=== PATIENT | male | born 1975 | race Caucasian/White ===

== ENCOUNTER 2016-10-07 08:36 | Observation (INO) | payer OTHER ==
[~2016-10-07] VITALS: Ht 177.8 cm; Wt 83.5 kg
[~2016-10-07 08:36] MED LIST: FIORTAB4 PO; Z.0.NO CURRENT MEDS
[2016-10-07 08:37] VITALS: BP 136/80; PULSE 72; RESP 18; TEMP 98.3; O2SAT 100
[2016-10-07 08:58] VITALS: BP 135/90; PULSE 72; RESP 18; O2SAT 100
--- NOTE | 2016-10-07 09:29 | PD ---
HPI Chief Complaint: Headache Time Seen by Provider: 09:01 Travel History International Travel<30 days: No Contact w/Intl Traveler<30days: No Traveled to known affect area: No History of Present Illness HPI This is a 40-year-old male with a history of a GAUGE MAKER APPRENTICE shunt, who presents today with complaints of headache. Patient also states he has tingling in his leg. He states that when he has malfunction so the son states that the symptoms he usually gets. Patient reports headache. He states it's not the worst headache of his life. He denies any photophobia. He does have nausea with no vomiting. He denies any fevers, chills. He states he is a little unsteady on his feet but no true ataxia. PFSH Past Medical History Arthritis: No Asthma: No Autoimmune Disease: No Blood Disorders: No Anxiety: No Depression: No Cancer: No Cardiovascular Problems: No Chemotherapy: No COPD: No Cerebrovascular Accident: No Diabetes: No Endocrine: No Gastrointestinal Disorders: Yes GERD: No Glaucoma: No Genitourinary: No Headaches: Yes Hepatitis: No Hiatal Hernia: No Musculoskeletal: Yes Neurologic: Yes (HYDROCEPHALISIS) Psychiatric: No Reproductive: No Respiratory: No Radiation Therapy: No Seizures: No Ulcer: Yes Past Surgical History Abdominal Surgery: No AICD: No Body Medical Devices: R-PARITAL LOBE GAUGE MAKER APPRENTICE SHUNT Cardiac Surgery: No Ear Surgery: No Endocrine Surgery: No Eye Surgery: No Genitourinary Surgery: No Gynecologic Surgery: No Neurologic Surgery: Yes (21 SHUNT REVISIONS) Oral Surgery: No Pacemaker: No Thoracic Surgery: No Other Surgery: Yes (GAUGE MAKER APPRENTICE SHUNTX 20) Social History Alcohol Use: Yes (1 BEER DAILY) Tobacco Use: Yes (1 CAN TOBACCO/3 DAYS) Substance Use: No Allergies-Medications (Allergen,Severity, Reaction): Coded Allergies: Morphine (Verified Allergy, Mild, Itching, 04/16/07) Adhesives (Verified Adverse Reaction, Mild, RED WHELPS, 04/16/07) Uncoded Allergies: MORPHINE ITCHING (Allergy, Mild, 12/20/06) Reported Meds & Prescriptions Reported Meds & Active Scripts Active No Active Prescriptions or Reported Medications Review of Systems Except as stated in HPI: all other systems reviewed are Neg General / Constitutional: No: Fever, Chills HENT: Positive: Headaches, No: Lightheadedness, Neck Pain Cardiovascular: No: Chest Pain or Discomfort, Palpitations Respiratory: No: Cough, Shortness of Breath Gastrointestinal: Positive: Nausea, No: Vomiting, Abdominal Pain Genitourinary: No: Incontinence Musculoskeletal: No: Weakness, Pain Neurologic: Positive: Headache (tingling down right leg), Sensory Disturbance, Other (unsteady on his feet.), No: Weakness, Dizziness Physical Exam Narrative GENERAL: Well-developed well-nourished male in no acute respiratory distress. SKIN: Focused skin assessment warm/dry. HEAD: Atraumatic. Normocephalic. EYES: No scleral icterus. No injection or drainage. ENT: No nasal bleeding or discharge. Mucous membranes pink and moist. NECK: Trachea midline. Supple. CARDIOVASCULAR: Regular rate and rhythm. No murmur appreciated. RESPIRATORY: No accessory muscle use. Clear to auscultation. Breath sounds equal bilaterally. GASTROINTESTINAL: Abdomen soft, non-tender, nondistended. Hepatic and splenic margins not palpable. MUSCULOSKELETAL: No obvious deformities. No clubbing. No cyanosis. No edema. NEUROLOGICAL: Awake and alert. No obvious cranial nerve deficits. Motor grossly within normal limits. Normal speech. Data Data Last Documented VS Vital Signs Date Time Temp Pulse Resp B/P Pulse Ox O2 Delivery O2 Flow Rate FiO2 10/07/16 14:00 60 18 137/72 99 Room Air 10/07/16 08:[address] Brain W/O Iv Contrast(Rout) (10/07/16 09:06) Shunt Series (10/07/16 ) Ondansetron Inj (Zofran Inj) (10/07/16 09:53) Ondansetron Inj (Zofran Inj) (10/07/16 10:00) Hydromorphone Pf Inj (Dilaudid Pf Inj) (10/07/16 10:15) Shuntogram (10/07/16 ) Ondansetron Inj (Zofran Inj) (10/07/16 14:00) Hydromorphone Pf Inj (Dilaudid Pf Inj) (10/07/16 14:00) Vital Signs (Adult) Q15MX2,Q30MX2 (10/07/16 15:12) Wound Care (10/07/16 15:12) ^ Dressings (10/07/16 15:12) Notify Dr: Other (10/07/16 15:12) Iohexol 300 Inj (Omnipaque 300 Inj) (10/07/16 15:36) Complete Blood Count With Diff (10/07/16 16:53) Basic Metabolic Panel (Bmp) (10/07/16 16:53) Sodium Chlor 0.9% 1000 Ml Inj (Ns 1000 M (10/07/16 17:00) Admit Order (Ed Use Only) (10/07/16 18:41) Labs Laboratory Tests Test 10/07/16 17:04 White Blood Count 6.1 TH/MM3 Red Blood Count 4.82 MIL/MM3 Hemoglobin 14.6 GM/DL Hematocrit 41.4 % Mean Corpuscular Volume 85.9 FL Mean Corpuscular Hemoglobin 30.2 PG Mean Corpuscular Hemoglobin 35.2 % Concent Red Cell Distribution Width 14.5 % Platelet Count 147 TH/MM3 Mean Platelet Volume 9.7 FL Neutrophils (%) (Auto) 54.9 % Lymphocytes (%) (Auto) 31.9 % Monocytes (%) (Auto) 8.3 % Eosinophils (%) (Auto) 4.1 % Basophils (%) (Auto) 0.8 % Neutrophils # (Auto) 3.4 TH/MM3 Lymphocytes # (Auto) 2.0 TH/MM3 Monocytes # (Auto) 0.5 TH/MM3 Eosinophils # (Auto) 0.3 TH/MM3 Basophils # (Auto) 0.0 TH/MM3 CBC Comment DIFF FINAL Differential Comment Sodium Level 139 MEQ/L Potassium Level 3.7 MEQ/L Chloride Level 105 MEQ/L Carbon Dioxide Level 27.5 MEQ/L Anion Gap 7 MEQ/L Blood Urea Nitrogen 17 MG/DL Creatinine 0.87 MG/DL Estimat Glomerular Filtration 96 ML/MIN Rate Random Glucose 86 MG/DL Calcium Level 8.8 MG/DL [facility] Medical Decision Making Medical Screen Exam Complete: Yes Emergency Medical Condition: Yes Differential Diagnosis Cephalgia versus shunt malfunction versus TIA Narrative Course 40-year-old male with history of GAUGE MAKER APPRENTICE shunt, presents today with plates of headache and right leg pain. The patient states whenever he has problems with his GAUGE MAKER APPRENTICE shunt, he experiences these symptoms. His GAUGE MAKER APPRENTICE shunt was revised 13 years ago. He reports the headache as bifrontal. He denies any vomiting but does state he is nauseous. He does report increased thirst. The patient has no reported fevers, chills. He has no weakness of his right lower extremity just pain. Shunt series, CT brain, and shuntogram show no obvious problems with his GAUGE MAKER APPRENTICE shunt. The patient has received 2 doses of IV pain medicine and nausea medications. He is still having recurrent symptoms. He's been given a liter of IV fluids and his labs reveal no evidence of acute process. The case was discussed with Dr. Rosales who recommended we made the patient to the hospital under observation. He recommended a neurology consults and he will also see him in consultation. Both consultations has been placed. Case was discussed with Dr. Vazquez who agrees. Diagnosis Primary Impression: Intractable headache Additional Impressions: intractable nausea history of GAUGE MAKER APPRENTICE shunt Admitting Information Admitting Physician Requests: Observation Scripts No Active Prescriptions or Reported Meds Omar Moon MD Oct 07, 2016 09:29
--- NOTE | 2016-10-07 09:43 | RADRPT ---
EXAM DATE/TIME: 10/07/2016 09:25 [facility] COMPARISON: No previous studies available for comparison. INDICATIONS : Headache and leg numbness. MEDICAL HISTORY : Hydrocephalus. SURGICAL HISTORY : SENIOR INTEGRATION DEVELOPER shunt. ENCOUNTER: Initial ACUITY: 1 week PAIN SCORE: 4/10 LOCATION: Head FINDINGS: Radiograph of the skull, neck, chest and abdomen performed to evaluate shunt patency. The shunt cath eter is seen entering the left frontal region with its tip in the midline. The catheter is continuous in its course terminating in the midpelvis. No catheter disruption is iden tified. The visualized heart, lungs and abdominal structures are intact. CONCLUSION: Intact shunt. Rony Lovelace MD on October 07, 2016 at 9:40 Board Certified Radiologist. This report was verified electronically.
[2016-10-07] MEDS ORDERED: ONDANSETRON HCL 4 MG/2 ML VIAL ONE (09:53)
[2016-10-07] MEDS ORDERED: ONDANSETRON HCL 4 MG/2 ML VIAL IVP ONE ×2 (10:00→14:00)
[2016-10-07] MEDS ORDERED: HYDROmorphone HCL PF 1 MG/ML VIAL IVS ONE ×2 (10:15→14:00)
--- NOTE | 2016-10-07 10:49 | RADRPT ---
EXAM DATE/TIME: 10/07/2016 09:54 [facility] COMPARISON: No previous studies available for comparison. INDICATIONS : Dizziness and headache. RADIATION DOSE: 50.40 CTDIvol (mGy) MEDICAL HISTORY : Hydrocephalus. SURGICAL HISTORY : WARDSPERSON shunt ENCOUNTER: Initial ACUITY: 1 day PAIN SCALE: 7/10 LOCATION: Cranial TECHNIQUE: Multiple contiguous axial images were obtained of the head. Using automated exposure control and adj ustment of the mA and/or kV according to patient size, radiation dose was kept as low as reasonably a chievable to obtain optimal diagnostic quality images. DICOM format image data is available electro nically for review and comparison. FINDINGS: A left frontal ventriculostomy shunt is identified with its tip in the expected region of a cavum sep gary pellucidum just to the right of midline. The ventricles are slightly prominent bilaterally. There is no acute infarct, acute hemorrhage, midline shift or extra-axial fluid collections. The bone windows are unremarkable. CONCLUSION: 1. Ventriculostomy shunt tip appears to be to the right of midline within cavum septum pellucidum. 2. Mild prominence of the ventricles bilaterally. 3. No acute infarct, acute hemorrhage, midline shift or extra-axial fluid collections. Rony Lovelace MD on October 07, 2016 at 10:39 Board Certified Radiologist. This report was verified electronically.
[2016-10-07 14:00] VITALS: BP 137/72; PULSE 60; RESP 18; O2SAT 99
--- NOTE | 2016-10-07 15:14 | PD.RAD ---
Post Procedure Progress Note Pre Procedure Diagnosis: (1) STOCK SAW OPERATOR (ventriculoperitoneal) shunt status Post Procedure Diagnosis: (1) STOCK SAW OPERATOR (ventriculoperitoneal) shunt status Procedure Date: Oct 07, 2016 Supervising Radiologist: Garett Anand JR Proceduralist/Assist: Victor Hugo Prado, RT(R), Arnold Nair RT(R) Anesthesia: Other Plan of Activity Patient to Unit: [facility]OPU Patient Condition: Good Additional Comments: STOCK SAW OPERATOR shunt patent. No leakage. Patent to the abdomen. See PACS Report for procedural detail/treatment Jr. Cheng,Garett Richmond MD Oct 07, 2016 15:14
[2016-10-07] MEDS ORDERED: IOHEXOL 300 MG/ML 50 ML BTL (for RAD DIAG) OTHER ONE (15:36)
--- NOTE | 2016-10-07 16:43 | RADRPT ---
EXAM DATE/TIME: 10/07/2016 14:38 [facility] COMPARISON: No previous studies available for comparison. INDICATIONS : Patient presents with non functioning shunt in need of shuntogram to evaluate function. MEDICAL HISTORY : Headaches Hydrocephalus SURGICAL HISTORY : Right partial lobe BLADE WORKER shunt (21 shunt revisions) ENCOUNTER: Initial ACUITY: 4-6 days PAIN SCORE: 3/10 LOCATION: N/A FLUORO TIME: 1.7 minutes IMAGE SERIES: 0 CONTRAST: 10 cc Omnipaque (iohexol) 300 PROCEDURE : 1. Fluoroscopically guided shuntogram. The risks, benefits and alternatives to the procedure were explained and verbal and written consent w as obtained. The site was prepped in sterile fashion. Full sterile technique was used, including ca p, mask, sterile gloves and gown and a large sterile sheet. Hand hygiene and 2% chlorhexidine and/or betadine/alcohol prep was utilized per protocol for cutaneous antisepsis. The skin and subcutaneous tissues were infiltrated with local anesthetic solution. With fluoroscopic guidance the previously placed shunt was injected with a 23 gauge butterfly needle and positive contrast was injected. The shunt enters via left parietal approach and terminates in the midline. The shunt courses down the left neck and chest and is coiled within the left midabdomen. Injection of contrast quickly spilled into the intraventricular portion as well as quickly opacifies the descending portion of the shunt sp illing easily into the peritoneal cavity. No extravasation is seen to suggest a leak. CONCLUSION: Patent BLADE WORKER shunt. No signs of leak. Garett Anand Jr., MD on October 07, 2016 at 16:40 Board Certified Radiologist. This report was verified electronically.
[2016-10-07] MEDS ORDERED: SODIUM CHLOR 0.9% 1000 ML INJ 1,000 ML IV ONE (17:00)
[2016-10-07 17:18] LABS: AUTOMATED NEUTROPHIL # 3.4 TH/MM3 (1.8-7.7); BASOPHIL % 0.8 % (0.0-2.0); EOSINOPHIL # 0.3 TH/MM3 (0-0.4); EOSINOPHIL % 4.1 % (0.0-4.0); HEMATOCRIT 41.4 % (39.0-51.0); HEMO FLAGS DIFF FINAL; LYMPH % 31.9 % (9.0-44.0); MEAN CELL VOLUME 85.9 FL (80.0-100.0); MEAN CORPUSCULAR HEMOGLOBIN 30.2 PG (27.0-34.0); MEAN CORPUSCULAR HGB CONC 35.2 % (32.0-36.0); MONO % 8.3 % (0.0-8.0); NEUT % 54.9 % (16.0-70.0); PLATELET COUNT 147 TH/MM3 (150-450); RED BLOOD COUNT 4.82 MIL/MM3 (4.50-5.90); RED CELL DISTRIBUTION WIDTH 14.5 % (11.6-17.2); WHITE BLOOD COUNT 6.1 TH/MM3 (4.0-11.0)
[2016-10-07 17:25] VITALS: BP 128/78; PULSE 89; RESP 18; O2SAT 99
[2016-10-07 17:52] LABS: BICARBONATE 27.5 MEQ/L (21.0-32.0); POTASSIUM 3.7 MEQ/L (3.5-5.1)
[2016-10-07 19:12] VITALS: BP 133/62; PULSE 59; RESP 16; O2SAT 93
[2016-10-07] MEDS ORDERED: ACETAMINOPHEN 325 MG TAB PO PRN (19:15)
[2016-10-07] MEDS ORDERED: SODIUM CHLORIDE 0.9% FLUSH 10 ML FLUSH IV FLUSH PRN (19:15)
[2016-10-07 21:06] VITALS: BP 112/71; PULSE 66; RESP 18; TEMP 98.4; O2SAT 97
[2016-10-07] MEDS: ONDANSETRON HCL 4 MG/2 ML VIAL IV PUSH PRN (23:16)
[2016-10-07] MEDS: SODIUM CHLORIDE 0.9% FLUSH 10 ML FLUSH IV FLUSH SCH (23:17)
[2016-10-08] VITALS (7 sets, daily range): BP systolic 94–136; BP diastolic 51–70; PULSE 60–74; RESP 16–20; TEMP 96.2–98.9; O2SAT 66–98
[2016-10-08] MEDS ORDERED: KETOROLAC TROMETHAMINE 30 MG/ML (IVP) VIAL IV PUSH ONE (03:45)
--- NOTE | 2016-10-08 04:45 | HHI.HP ---
HPI Service [facility] Primary Care Physician Non-Staff Admission Diagnosis intractable headache, hx of vp publisher development shunt, Diagnoses: (1) Intractable headache Chief Complaint: headache Travel History International Travel<30 Days: No Contact w/Intl Traveler <30 Da: No Traveled to Known Affected Are: No History of Present Illness Written by Diann Frederick, acting as scribe for Dr. Lay on 10/08/16 at 04:35. The patient is seen in the CDU. 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 Denies photosensitivity. Migraines improve with advil migraine OTC medication Denies abdominal pain, fever, blurry vision, unilateral weakness, vomiting, diarrhea, black stool, red stool, or difficulty urinating - Review of Systems Except as stated in HPI: all other systems reviewed are Neg Past Family Social History Past Medical History Hydrocephalus Bleeding ulcers Denies hypertension, CAD, atrial fibrillation, breathng problems, liver problems , kidney problems, DVT, PE, CVA, seizures, thyroid dysfunction, or cancers . Past Surgical History CHILD CARE NURSE shunt insertion GI bleed cauterization during endoscopy Appendectomy . Reported Medications Protonix Advil migraine . Allergies: Coded Allergies: Morphine (Verified Allergy, Mild, Itching, 04/16/07) Dilaudid (Verified Adverse Reaction, Intermediate, Chest Pain, 10/09/16) Adhesives (Verified Adverse Reaction, Mild, RED WHELPS, 04/16/07) Uncoded Allergies: MORPHINE ITCHING (Allergy, Mild, 12/20/06) Active Ordered Medications Current Medications Ondansetron HCl (Zofran Inj) 4 mg STK-MED ONCE .ROUTE ; Start 10/07/16 at 09:53 ; Stop 10/07/16 at 09:54; Status DC Ondansetron HCl (Zofran Inj) 4 mg ONCE ONCE IVP Last administered on 10:06; Start 10/07/16 at 10:00; Stop 10/07/16 at 10:01; Status DC Hydromorphone HCl (Dilaudid Pf Inj) 0.5 mg ONCE ONCE IVS Last administered on 10/07/16 10:18; Start 10/07/16 at 10:15; Stop 10/07/16 at 10:16; Status DC Ondansetron HCl (Zofran Inj) 4 mg ONCE ONCE IVP Last administered on 13:59; Start 10/07/16 at 14:00; Stop 10/07/16 at 14:01; Status DC Hydromorphone HCl (Dilaudid Pf Inj) 1 mg ONCE ONCE IVS Last administered on 14:00; Start 10/07/16 at 14:00; Stop 10/07/16 at 14:01; Status DC Iohexol 10 ml 10 ml STK-MED ONCE OTHER Last administered on 10/07/16 15:15; Start 10/07/16 at 15:36; Stop 10/07/16 at 15:37; Status DC Sodium Chloride (NS 1000 ml Inj) 1,000 ml @ 999 mls/hr BOLUS ONCE IV Last administered on 10/07/16 17:12; Start 10/07/16 at 17:00; Stop 10/07/16 at 18:00 ; Status DC Sodium Chloride (NS Flush) 2 ml UNSCH PRN IV FLUSH FLUSH AFTER USING IV ACCESS ; Start 10/07/16 at 19:15 Sodium Chloride (NS Flush) 2 ml BID IV FLUSH Last administered on 10/07/16 23: 17; Start 10/07/16 at 21:00 Acetaminophen (Tylenol) 650 mg Q6H PRN PO PAIN SCALE 1 TO 2 Last administered on 10/07/16 23:16; Start 10/07/16 at 19:15 Ondansetron HCl (Zofran Inj) 4 mg Q6H PRN IV PUSH NAUSEA OR VOMITING Last administered on 10/07/16 23:16; Start 10/07/16 at 22:15 Ketorolac Tromethamine (Toradol Inj) 15 mg ONCE ONCE IV PUSH Last administered on 10/08/16 04:18; Start 10/08/16 at 03:45; Stop 10/08/16 at 03:46 ; Status DC . Family History Mother had a CABG x 3 . Social History Tobacco: dips a can every 2 days Alcohol: a beer every couple of days . Physical Exam Vital Signs Vital Signs Date Time Temp Pulse Resp B/P Pulse Ox O2 Delivery O2 Flow Rate FiO2 10/08/16 02:57 98.8 67 20 118/64 98 10/08/16 00:10 98.9 60 20 94/51 98 10/07/16 21:06 98.4 66 18 112/71 97 10/07/16 19:12 59 16 133/62 93 Room Air 10/07/16 17:25 89 18 128/78 99 Room Air 10/07/16 14:00 60 18 137/72 99 Room Air 10/07/16 08:58 72 18 135/90 100 Room Air 10/07/16 08:54 64 18 99 Room Air 10/07/16 08:37 98.3 72 18 136/80 100 Room Air Physical Exam GENERAL: This is a well-nourished, well-developed patient, in no apparent distress. SKIN: No rashes, ecchymoses or lesions. Cool and dry. HEAD: Atraumatic. Normocephalic. EYES: No scleral icterus. No injection or drainage. ENT: Nose without bleeding, purulent drainage. NECK: Trachea midline. No JVD or lymphadenopathy. CARDIOVASCULAR: Regular rate and rhythm without murmurs, gallops, or rubs. RESPIRATORY: Clear to auscultation. Breath sounds equal bilaterally. No wheezes , rales, or rhonchi. GASTROINTESTINAL: Abdomen soft, non-tender, nondistended. No guarding. MUSCULOSKELETAL: Extremities without clubbing, cyanosis, or edema. No calf tenderness. NEUROLOGICAL: Awake and alert. Motor and sensory grossly within normal limits. Normal speech. . Laboratory Laboratory Tests Test 10/07/16 17:04 White Blood Count 6.1 Red Blood Count 4.82 Hemoglobin 14.6 Hematocrit 41.4 Mean Corpuscular Volume 85.9 Mean Corpuscular Hemoglobin 30.2 Mean Corpuscular Hemoglobin 35.2 Concent Red Cell Distribution Width 14.5 Platelet Count 147 Mean Platelet Volume 9.7 Neutrophils (%) (Auto) 54.9 Lymphocytes (%) (Auto) 31.9 Monocytes (%) (Auto) 8.3 Eosinophils (%) (Auto) 4.1 Basophils (%) (Auto) 0.8 Neutrophils # (Auto) 3.4 Lymphocytes # (Auto) 2.0 Monocytes # (Auto) 0.5 Eosinophils # (Auto) 0.3 Basophils # (Auto) 0.0 CBC Comment DIFF FINAL Differential Comment Sodium Level 139 Potassium Level 3.7 Chloride Level 105 Carbon Dioxide Level 27.5 Anion Gap 7 Blood Urea Nitrogen 17 Creatinine 0.87 Estimat Glomerular Filtration 96 Rate Random Glucose 86 Calcium Level 8.8 Result Diagram: 10/07/16 1704 10/07/16 170 Imaging Last Impressions Head CT 10/07/16 0906 Signed Impressions: Service Date/Time: September 09:54 - CONCLUSION: 1. Ventriculostomy shunt tip appears to be to the right of midline within cavum septum pellucidum. 2. Mild prominence of the ventricles bilaterally. 3. No acute infarct, acute hemorrhage, midline shift or extra-axial fluid collections. Rony Lovelace MD Shunt Study (Imaging) 10/07/16 0000 Signed Impressions: Service Date/Time: September 09:25 - CONCLUSION: Intact shunt. Rony Lovelace MD Shunt Study 10/07/16 0000 Signed Impressions: Service Date/Time: September 14:38 - CONCLUSION: Patent CHILD CARE NURSE shunt. No signs of leak. Garett Anand Jr., MD Assessment and Plan Problem List: (1) Intractable headache ICD Code: R51 Status: Acute Assessment and Plan Intractable headache in a patient with a CHILD CARE NURSE shunt for congenital hydrocephaly - The CHILD CARE NURSE shunt was evaluated in IR and found to be patent with no leakage - Dr. Rosales and ER physician discussed this case - Consult neurology per recommendation of Dr. Rosales - Dilaudid 0.5 mg IV q4h PRN pain > 5 - monitor vital signs q4h DVT prophylaxis - SCDs/TEDs when lying in bed . This note was transcribed by [email or web address] [Diann Frederick]. I, Dr. Angie Lay personally performed the history, physical exam, and medical decision making; and confirmed the accuracy of the information in the transcribed note. Authenticated by Dr. Angie Lay on 10/08/16 at 04:35. Discussed Condition With Patient and RN Diann Frederick Oct 08, 2016 04:45 Angie Lay MD Oct 12, 2016 08:09
[2016-10-08] MEDS ORDERED: HYDROmorphone HCL PF 1 MG/ML VIAL IV PUSH PRN (05:00)
[2016-10-08] MEDS: HYDROmorphone HCL PF 1 MG/ML VIAL IV PUSH PRN ×3 (07:40→18:21)
[2016-10-08] MEDS: ONDANSETRON HCL 4 MG/2 ML VIAL IV PUSH PRN ×2 (07:45→18:20)
--- NOTE | 2016-10-08 09:21 | PD.CONS ---
History of Present Illness Service Neurology Consult Requested By er/medical Reason for Consult headaches Primary Care Physician Non-Staff History of Present Illness 40 y/o m admitted for headaches. er d/w with neema. hx of IRISH MOSS GATHERER shunt for hydrocephalus with multiple revisions in the past. relocated to [facility] 4 months ago. has been seen by nsx here in the past and followed by nsx in [place]. c/o throbbing peck, mild photophobia. mild nausea. although does have appetite and ready to eat breakfast this am. gets rt leg tingling, numbness with headache. none at present. states he has had the exact symptoms in the past and it has been related to IRISH MOSS GATHERER shunt malfunction, last seen here 12/2006 for this. denies abd pain, vision loss, cp, focal weakness. feels well otherwise. ct brain stable. hub borer shunt series- intact. Review of Systems Except as stated in HPI: all other systems reviewed are Neg Past Family Social History Past Medical History Hydrocephalus Past Surgical History IRISH MOSS GATHERER shunt insertion GI bleed cauterization during endoscopy Appendectomy . Reported Medications Protonix Advil migraine . Allergies: Coded Allergies: Morphine (Verified Allergy, Mild, Itching, 04/16/07) Adhesives (Verified Adverse Reaction, Mild, RED WHELPS, 04/16/07) Uncoded Allergies: MORPHINE ITCHING (Allergy, Mild, 12/20/06) . Family History Mother had a CABG x 3 . Social History occasional tob/etoh use works at [employer] relocated to [facility] Review of Systems All other ROS: ROS reviewed as documented in chart Past Family Social History Allergies: Coded Allergies: Morphine (Verified Allergy, Mild, Itching, 04/16/07) Adhesives (Verified Adverse Reaction, Mild, RED WHELPS, 04/16/07) Uncoded Allergies: MORPHINE ITCHING (Allergy, Mild, 12/20/06) Active Ordered Medications Current Medications Medications (Trade) Dose Ordered Sig/Verónica Route Start Time Stop Time Status Last Admin (NS Flush) 2 ml UNSCH PRN IV FLUSH 10/07/16 19:15 (NS Flush) 2 ml BID IV FLUSH 10/07/16 21:00 10/07/16 23:17 (Tylenol) 650 mg Q6H PRN PO 10/07/16 19:15 10/07/16 23:16 (Zofran Inj) 4 mg Q6H PRN IV PUSH 10/07/16 22:15 10/08/16 07:45 (Dilaudid Pf Inj) 0.5 mg Q4H PRN IV PUSH 10/08/16 05:00 10/08/16 07:40 Exam I&O / VS 10/07/16 10/07/16 10/08/16 15:00 23:00 07:00 Output Total 200 ml Balance -200 ml Output Urine Total 200 ml # Voids 1 Vital Signs Date Time Temp Pulse Resp B/P Pulse Ox O2 Delivery O2 Flow Rate FiO2 10/08/16 08:31 97.8 62 18 116/70 98 10/08/16 06:54 113/58 10/08/16 02:57 98.8 67 20 118/64 98 10/08/16 00:10 98.9 60 20 94/51 98 10/07/16 21:06 98.4 66 18 112/71 97 10/07/16 19:12 59 16 133/62 93 Room Air 10/07/16 17:25 89 18 128/78 99 Room Air 10/07/16 14:00 60 18 137/72 99 Room Air General: Alert and Oriented, No acute distress Eye: EOMI Respiratory: Non-labored respirations Neurologic: Alert, Oriented, Normal sensory, Normal motor, No focal defects, CN II-XII intact, Gag reflex normal, Normal DTR's Psychiatric: Cooperative, Appropriate mood & affect, Normal judgement, Non- suicidal Review/Management Diagnosis/Plan: (1) Headache Plan: r/o IRISH MOSS GATHERER shunt malfunction similar symptoms in the past that were related to shunt other possibility is migraine recs NSX eval of shunt. if no no IRISH MOSS GATHERER shunt malfunction found would suggest mri/mra brain follow exam (2) IRISH MOSS GATHERER (ventriculoperitoneal) shunt status Problem Qualifiers (1) Headache: Carlos Wing MD Oct 08, 2016 09:21
--- NOTE | 2016-10-08 11:10 | HHI.PR ---
Subjective Remarks Patient still states intractable bandlike headache is not improved. Reports IV pain meds to take the edge off slightly however these have a headache. He states that he feels the headache is similar to his previous episode malfunction of CUPOLA MAN shunt. He is surprised to hear that the shunt studies were normal. Objective Vitals Vital Signs Date Time Temp Pulse Resp B/P Pulse Ox O2 Delivery O2 Flow Rate FiO2 10/08/16 08:31 97.8 62 18 116/70 98 10/08/16 06:54 113/58 10/08/16 02:57 98.8 67 20 118/64 98 10/08/16 00:10 98.9 60 20 94/51 98 10/07/16 21:06 98.4 66 18 112/71 97 10/07/16 19:12 59 16 133/62 93 Room Air 10/07/16 17:25 89 18 128/78 99 Room Air 10/07/16 14:00 60 18 137/72 99 Room Air I/O 10/07/16 10/07/16 10/07/16 10/08/16 10/08/16 10/08/16 07:00 15:00 23:00 07:00 15:00 23:00 Output Total 200 ml Balance -200 ml Output Urine Total 200 ml # Voids 1 Result Diagram: 10/07/16 1704 10/07/16 1704 Objective Remarks GENERAL: This is a well-nourished, well-developed patient, in no apparent distress. CARDIOVASCULAR: Regular rate and rhythm RESPIRATORY: Clear to auscultation. Breath sounds equal bilaterally. No wheezes , rales, or rhonchi. GASTROINTESTINAL: Abdomen soft, non-tender, nondistended. Normal active bowel sounds MUSCULOSKELETAL: Extremities without clubbing, cyanosis, or edema. NEURO: Alert & Oriented x4 to person, place, time, situation. 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 Rosales and ER physician discussed this case; await evaluation with Dr. Rosales. - Consult neurology per recommendation of Dr. Rosales -Continue pain control Dilaudid 0.5 mg IV q4h PRN pain > 5 Neurology ordered EEG and await findings. We'll defer MRI ordering to neurosurgery if needed. DVT prophylaxis SCDs/TEDs when lying in bed Discharge Planning Home when cleared by neurosurgery and neurology. Mansi Vazquez MD Oct 08, 2016 11:10
[2016-10-08] MEDS: SODIUM CHLORIDE 0.9% FLUSH 10 ML FLUSH IV FLUSH SCH ×2 (12:03→20:09)
--- NOTE | 2016-10-08 16:41 | MB ---
cc: [facility] DATE OF CONSULTATION: 10/06/[address] Wing. HISTORY This is a 40-year-old gentleman who has a history of congenital hydrocephalus and placement of BLOWER OPERATOR shunt sometime in the patient's early 20s. The patient has had multiple revisions and states the most recent of which was done in [place]. He is uncertain as to that exact time but feels it was over 10 years ago. The patient has been seen here multiple times for symptoms of headache and photophobia to rule out shunt malfunction. Most recently in [address] Rosales saw the patient and documents his shunt as being a programmable Medtronic <<1:28>> stratified valve set at 1.0. The patient presented to the emergency room here once again with complaints of headache, photophobia right lower extremity pain and back pain. He states he has had the exact symptoms. He has had in the past when the shunt as malfunction. Workup included CT scan of the brain as well as shunt series and shuntogram. I reviewed the studies. The CT scan of the brain shows ventricular catheter in good position. Ventricles do not appear overly enlarged given the patient's history. Cortical sulci basal cisterns remained patent with no evidence of increased intracranial pressure. Shuntogram serious shows moving through the ventricular system. I am sorry not moving from the ventricular system to the shunt into the peritoneal cavity without obstruction. The Medtronic shunt setting was checked and at this time is 70 at the level 0.5. PAST MEDICAL HISTORY: past medical history significant for hydrocephalus with multiple revisions in the past as stated above. The patient also has history of GI bleed secondary to ulcer disease. CURRENT MEDICATIONS 1. Protonix. 2. Advil for his headache symptoms ALLERGIES MORPHINE REVIEW OF SYSTEMS Pertinent as stated in history of present illness, otherwise negative examination. PHYSICAL EXAMINATION: IN GENERAL: Well-developed, well-nourished gentleman. He is awake, alert, no acute distress. HEAD, EYES, EARS, NOSE, AND THROAT: Head is atraumatic, normocephalic. Shunt valve evident in the left coronal region which pumps and refills well. Pupils are equal, reactive to light. Extraocular movements are intact. NECK: The neck is supple, full range of motion. No rigidity or meningeal signs. NEUROLOGIC EXAMINATION Mental status is normal. Cranial nerves II-XII are intact. Speech is intact. Motor function is 5/5 upper and lower extremities. Sensory intact to primary modalities. Reflexes normoactive. ASSESSMENT No evidence of shunt malfunction. Shunt setting now at 0.5. The last documented shunt setting by Dr. Rosales in 2006 states shunt set a 1.0 and the patient tells me that the shunt has not been reprogrammed since that time. This brings up the possibility of change in the setting causing some over shunting and added concerns. RECOMMENDATIONS The shunt valve was reprogrammed to level 1.0. Will see if this improves the patient is headache complaints. No other intervention indicated at this time. MD WILMA Washington/keely /1:35 PM /4:26 PM
[2016-10-09 01:54] VITALS: BP 99/56; PULSE 58; RESP 19; TEMP 98.5; O2SAT 96
[2016-10-09 05:10] VITALS: BP 121/61; PULSE 57; RESP 19; TEMP 98.7; O2SAT 95
[2016-10-09] MEDS: HYDROmorphone HCL PF 1 MG/ML VIAL IV PUSH PRN (05:33)
[2016-10-09] MEDS: SODIUM CHLORIDE 0.9% FLUSH 10 ML FLUSH IV FLUSH SCH (08:52)
[2016-10-09 09:12] VITALS: BP 102/72; PULSE 61; RESP 16; TEMP 97.5; O2SAT 94
--- NOTE | 2016-10-09 09:12 | MG ---
cc: OG MORTON MD Lab No: [id number] Date: 10/08/2016 Age: 40 Sex: M Race: DATE OF : 1975 PROCEDURE: A 40-year-old history of headache, NOCTURNIST PHYSICIAN shunt, Excessive eye movement began the recording. Reduced with photic driving posterior rhythm demonstrating 79 Hz activity during wakefulness 10-30 microvolts. Single lead EKG showing sinus rhythm, transition into drowsy state of the recording of occur no cardiac dysrhythmia. No epileptic activity. INTERPRETATION Normal low amplitude awake drowsy EEG. Clinical correlation Og Morton MD MG/ /7:48 AM /9:05 AM
--- NOTE | 2016-10-09 09:24 | HHI.PR ---
Subjective Remarks Follow-up for intractable headache. The patient states that with pain medication his pain is down to a 45/10 which he says is an acceptable level for him, except that his pain increases whenever the pain medicine wears off. He says that he normally gets headaches at home that last for about a day and are managed with [id number] migraine medications, but has not had a headache that is lasted this long in a while. He denies any vision changes. He states he occasionally gets some tingling pain in his legs. Overall, he does feel that his headache and leg pain has improved a little bit with shunt adjustment. He is hoping to get his pain a little bit better controlled so he can hopefully go home soon. Has been ambulating. Objective Vitals Vital Signs Date Time Temp Pulse Resp B/P Pulse Ox O2 Delivery O2 Flow Rate FiO2 10/09/16 05:10 98.7 57 19 121/61 95 10/09/16 01:54 98.5 58 19 99/56 96 10/08/16 19:35 96.2 73 20 136/57 98 10/08/16 16:42 98.8 74 16 116/60 97 10/08/16 11:48 98.4 62 20 119/68 66 Result Diagram: 10/07/16 1704 10/07/16 1704 Imaging Last Impressions Head CT 10/07/1606 Signed Impressions: Service Date/Time: September 09:54 - CONCLUSION: 1. Ventriculostomy shunt tip appears to be to the right of midline within cavum septum pellucidum. 2. Mild prominence of the ventricles bilaterally. 3. No acute infarct, acute hemorrhage, midline shift or extra-axial fluid collections. Rony Lovelace MD Shunt Study (Imaging) 10/07/16 0000 Signed Impressions: Service Date/Time: September 09:25 - CONCLUSION: Intact shunt. Rony Lovelace MD Shunt Study 10/07/16 0000 Signed Impressions: Service Date/Time: September 14:38 - CONCLUSION: Patent GROUTER HELPER shunt. No signs of leak. Garett Anand Jr., MD Objective Remarks GENERAL: Well-developed well-nourished. In no acute distress. SKIN: Warm and dry. No lesions noted. HEENT: Normocephalic. Pupils equal and round and reactive to light. Mucous membranes pink and moist. CARDIOVASCULAR: Regular rate and rhythm. No murmur appreciated. RESPIRATORY: No accessory muscle use. Clear to auscultation. Breath sounds equal bilaterally. GASTROINTESTINAL: Abdomen soft, non-tender, nondistended. Bowel sounds x4. MUSCULOSKELETAL: No obvious deformities. No clubbing or cyanosis. No edema. NEUROLOGICAL: Awake and alert. No focal neurological deficits. Moves upper and lower extremities spontaneously. Normal speech. Strength 5/5. PSYCHIATRIC: Appropriate mood and affect; insight and judgment normal. A/P Problem List: (1) Intractable headache ICD Code: R51 Status: Acute Assessment and Plan Intractable headache in a patient with a GROUTER HELPER shunt for congenital hydrocephaly -The GROUTER HELPER shunt was evaluated in IR and found to be patent with no leakage -Neurology consulted, ordered EEG and recommended neurosurgery evaluation -Neurosurgery consulted, adjusted shunt setting -Continue pain control with oral [place] and IV Dilaudid -Follow up neurology recommendations, consider additional medications for headache DVT prophylaxis SCDs/TEDs when lying in bed D/W Dr. Billings Discharge Planning Follow-up further neurology recommendations and monitor patient's clinical response. 1315 neurology recommended IV Reglan and Benadryl for headache. After receiving this, the patient states his headache has continued to improve to a 3- 4/10. Patient at bedside. Comfortable with discharge today. Prescription for [place] written. Recommended outpatient neurology follow-up. Keven Hawley Oct 09, 2016 09:24
[2016-10-09] MEDS ORDERED: SUMAtriptan INJ 6 MG/0.5 ML VIAL SQ PRN (09:30)
--- NOTE | 2016-10-09 09:30 | HHI.PR ---
Review/Management Diagnosis/Plan: (1) Migraine Plan: sounding more like migraine recs iv benadryl/reglan imitrex as needed s/b d/w pt of above meds d/c planning once he is feeling better (2) Headache Plan: r/o [employer] shunt malfunction similar symptoms in the past that were related to shunt seen by nsx migraine recs avp setting increased; pt feels better but still with peck (3) [employer] (ventriculoperitoneal) shunt status Subjective Subjective Comments No acute events reported +headache, nausea, +photophobia able to tania po No chest pain No dyspnea Active Medications Current Medications Medications (Trade) Dose Ordered Sig/Verónica Route Start Time Stop Time Status Last Admin (NS Flush) 2 ml UNSCH PRN IV FLUSH 10/07/16 19:15 (NS Flush) 2 ml BID IV FLUSH 10/07/16 21:00 10/09/16 08:52 (Tylenol) 650 mg Q6H PRN PO 10/07/16 19:15 10/07/16 23:16 (Zofran Inj) 4 mg Q6H PRN IV PUSH 10/07/16 22:15 10/08/16 18:20 (Dilaudid Pf Inj) 0.5 mg Q4H PRN IV PUSH 10/08/16 05:00 10/09/16 05:33 ([place] 5-325 Mg) 1 tab Q6H PRN PO 10/09/16 10:00 Allergies Allergies Coded Allergies Morphine (Verified Allergy, Mild, Itching, 04/16/07) Dilaudid (Verified Adverse Reaction, Intermediate, Chest Pain, 10/09/16) Adhesives (Verified Adverse Reaction, Mild, RED WHELPS, 04/16/07) Uncoded Allergies MORPHINE ITCHING ( Allergy, Mild, 12/20/06) Review of Systems All other ROS: ROS reviewed as documented in chart Exam I&O / VS Vital Signs Date Time Temp Pulse Resp B/P Pulse Ox O2 Delivery O2 Flow Rate FiO2 10/09/16 09:12 97.5 61 16 102/72 94 10/09/16 05:10 98.7 57 19 121/61 95 10/09/16 01:54 98.5 58 19 99/56 96 10/08/16 19:35 96.2 73 20 136/57 98 10/08/16 16:42 98.8 74 16 116/60 97 10/08/16 11:48 98.4 62 20 119/68 66 General: Alert and Oriented, No acute distress Eye: EOMI Respiratory: Non-labored respirations Neurologic: Alert, Oriented, Normal sensory, Normal motor, No focal defects, CN II-XII intact, Gag reflex normal, Normal DTR's Psychiatric: Cooperative, Appropriate mood & affect, Normal judgement, Non- suicidal Exam Comments neck supple, vff, ou 3-2mm, face sym, no focal weakness Problem Qualifiers (1) Headache: Carlos Wing MD Oct 09, 2016 09:30
[2016-10-09] MEDS ORDERED: ACETAMINOPHEN/HYDROcodone 325 MG/5 MG TAB PO PRN (10:00)
[2016-10-09] MEDS: diphenhydrAMINE HCL 50 MG/ML VIAL IV PUSH SCH ×2 (11:03→14:00)
[2016-10-09] MEDS: METOCLOPRAMIDE HCL 10 MG/2 ML VIAL IV PUSH SCH ×2 (11:04→14:00)
[2016-10-09 11:16] VITALS: PULSE 69
--- NOTE | 2016-10-09 11:30 | HHI.NSPN ---
History Interval History Patient resting comfortably in bed today. He notes that since his shunt reprogramming his headache seems to be lessening. He feels that it is currently tolerable. No new complaints. Exam Results Vital Signs Date Time Temp Pulse Resp B/P Pulse Ox O2 Delivery O2 Flow Rate FiO2 10/09/16 11:16 69 10/09/16 09:12 97.5 16 102/72 94 10/07/16 19:12 Room Air Physical Examination Neurological examination is intact without focal deficits. Medical Decision Making Impression and Plan Status post shunt reprogramming to level I.0 with improvement of headache symptoms. Possible over shunting versus resolving migraine syndrome. Recommendations: No further neurosurgical intervention indicated. Patient was recommended to follow up with his neurosurgeon on a yearly basis to check the shunt program level. He is cleared for discharge from neurosurgical viewpoint. Govind Cooper MD Oct 09, 2016 11:30
[2016-10-09 12:11] VITALS: BP 114/61; PULSE 66; RESP 16; TEMP 97.3; O2SAT 95
[2016-10-09] MEDS ORDERED: HYDR-3516 PO (13:20)
== END 2016-10-09 15:42 | disposition home or self-care (01) ==
LOC: NEPE 08:36 → NEDA 18:44 → NEPGCP 20:58
PROVIDERS: ADMIT Hospitalist; ATTEND Hospitalist
DX: R51 Headache (principal); G91.9 Hydrocephalus, unspecified; Z98.2 Presence of cerebrospinal fluid drainage device; Z87.11 Personal history of peptic ulcer disease; Z82.49 Family history of ischemic heart disease and other diseases of the circulatory system; F17.220 Nicotine dependence, chewing tobacco, uncomplicated
CPT/HCPCS: 61070; 70250; 70450; 71010; 72040; 74000; 75809; 80048; 85025; 95819; 96361; 96374; 96375; 96376; 99285; G0378; J1170; J1200; J1885; J2405; J2765; J7030; Q9967

== ENCOUNTER 2016-11-25 07:44 | Observation (INO) | payer OTHER ==
[~2016-11-25] VITALS: Ht 177.8 cm; Wt 85.0 kg
[~2016-11-25 07:44] MED LIST changes: -FIORTAB4 PO; +HYDR-3516 PO; -Z.0.NO CURRENT MEDS
[2016-11-25] MEDS ORDERED: IODIXANOL 320 MG/ML 10 ML VIAL (for Rad CT) IV ONE (07:45)
[2016-11-25 07:46] VITALS: BP 142/82; PULSE 89; RESP 13; TEMP 98.7; O2SAT 98
[2016-11-25 07:59] VITALS: RESP 24; O2SAT 96
[2016-11-25] MEDS ORDERED: ONDANSETRON HCL 4 MG/2 ML VIAL IVP ONE (08:00)
[2016-11-25] MEDS ORDERED: SODIUM CHLOR 0.9% 1000 ML INJ 1,000 ML IV SCH ×2 (08:00→11:26)
[2016-11-25] MEDS ORDERED: DICYCLOMINE HCL 20 MG/2 ML VIAL IM ONE (08:00)
[2016-11-25] MEDS ORDERED: SODIUM CHLORIDE 0.9% FLUSH 10 ML FLUSH IV FLUSH PRN ×4 (08:00→20:15)
--- NOTE | 2016-11-25 08:04 | PD ---
HPI Chief Complaint: Abdominal Pain Time Seen by Provider: 08:00 Travel History International Travel<30 days: No Contact w/Intl Traveler<30days: No Traveled to known affect area: No History of Present Illness HPI 40-year-old male with history of hydrocephalus with shunt, appendectomy in the past, presents to the ER today for at least a week history of right upper quadrant abdominal pain with nausea and vomiting. He states that he had been into see [facility] last week regarding this issue and had CAT scan and ultrasound done but they did not find an obvious cause. He is back today because the symptoms worsened again in the past 2 days and he is nauseous and vomiting. He denies any diarrhea, urinary symptoms, fevers, or any other issues. Pain is currently rated as 7 out of 10. He does not know any exacerbating or alleviating factors. Modifying Factors: None Associated Signs & Symptoms: Right upper quadrant abdominal pains and nausea and vomiting Risk Factors: None PFSH Past Medical History Arthritis: No Asthma: No Autoimmune Disease: No Blood Disorders: No Anxiety: No Depression: No Heart Rhythm Problems: No Cancer: No Cardiovascular Problems: No High Cholesterol: No Chemotherapy: No Chest Pain: No Congestive Heart Failure: No COPD: No Cerebrovascular Accident: No Diabetes: No Endocrine: No Gastrointestinal Disorders: Yes GERD: No Glaucoma: No Genitourinary: No Headaches: Yes Hepatitis: No Hiatal Hernia: No Immune Disorder: No Musculoskeletal: Yes (right foot broken 2017) Neurologic: Yes (HYDROCEPHALISIS) Psychiatric: No Reproductive: No Respiratory: No Radiation Therapy: No Seizures: No Sleep Apnea: No Thyroid Disease: No Ulcer: Yes Past Surgical History Abdominal Surgery: No AICD: No Appendectomy: Yes Body Medical Devices: R-PARITAL LOBE FERRYBOAT HELPER SHUNT Cardiac Surgery: No Ear Surgery: No Endocrine Surgery: No Eye Surgery: No Genitourinary Surgery: No Gynecologic Surgery: No Neurologic Surgery: Yes (21 SHUNT REVISIONS) Oral Surgery: No Pacemaker: No Thoracic Surgery: No Other Surgery: Yes (FERRYBOAT HELPER SHUNTX 20) Social History Alcohol Use: Yes (1 BEER DAILY) Tobacco Use: Yes (1 CAN TOBACCO/3 DAYS) Substance Use: No Allergies-Medications (Allergen,Severity, Reaction): Coded Allergies: morphine (Unverified Allergy, Mild, Itching, 11/25/16) hydromorphone (Unverified Adverse Reaction, Intermediate, Chest Pain, 11/25) adhesive (Unverified Adverse Reaction, Mild, RED WHELPS, 11/25/16) Uncoded Allergies: MORPHINE ITCHING (Allergy, Mild, 12/20/06) Reported Meds & Prescriptions Reported Meds & Active Scripts Active No Active Prescriptions or Reported Medications Review of Systems Except as stated in HPI: all other systems reviewed are Neg Physical Exam Narrative GENERAL: Well-developed middle age white male patient currently mild distress. Awake and oriented 3. SKIN: Focused skin assessment warm/dry. HEAD: Atraumatic. Normocephalic. EYES: Pupils equal and round. No scleral icterus. No injection or drainage. ENT: No nasal bleeding or discharge. Mucous membranes pink and moist. NECK: Trachea midline. No JVD. CARDIOVASCULAR: Regular rate and rhythm. No murmur appreciated. RESPIRATORY: No accessory muscle use. Clear to auscultation. Breath sounds equal bilaterally. GASTROINTESTINAL: Abdomen soft, mild right lower quadrant tenderness without guarding or rebound, nondistended. Hepatic and splenic margins not palpable. MUSCULOSKELETAL: No obvious deformities. No clubbing. No cyanosis. No edema. NEUROLOGICAL: Awake and alert. No obvious cranial nerve deficits. Motor grossly within normal limits. Normal speech. PSYCHIATRIC: Appropriate mood and affect; insight and judgment normal. Data Data Last Documented VS Vital Signs Date Time Temp Pulse Resp B/P (MAP) Pulse Ox O2 Delivery O2 Flow Rate FiO2 11/25/16 11:05 58 16 115/59 (77) 100 Room Air 11/25/16 07:46 98.7 Orders Orders Complete Blood Count With Diff (11/25/16 07:53) Comprehensive Metabolic Panel (11/25/16 07:53) Lipase (11/25/16 07:53) Iv Access Insert/Monitor (11/25/16 07:53) Ecg Monitoring (11/25/16 07:53) Oximetry (11/25/16 07:53) Sodium Chloride 0.9% Flush (Ns Flush) (11/25/16 08:00) Urinalysis - C+S If Indicated (11/25/16 08:00) Ct Abd/Pel W Iv Contrast(Rout) (11/25/16 08:00) Ondansetron Inj (Zofran Inj) (11/25/16 08:00) Sodium Chlor 0.9% 1000 Ml Inj (Ns 1000 M (11/25/16 08:00) Sodium Chloride 0.9% Flush (Ns Flush) (11/25/16 08:00) Dicyclomine Inj (Bentyl Inj) (11/25/16 08:00) Iodixanol 320 Inj (Rad Ct) (Visipaque 32 (11/25/16 07:45) Labs Laboratory Tests Test 11/25/16 07:55 11/25/16 08:35 White Blood Count 5.8 TH/MM3 Red Blood Count 5.04 MIL/MM3 Hemoglobin 15.4 GM/DL Hematocrit 44.2 % Mean Corpuscular Volume 87.8 FL Mean Corpuscular Hemoglobin 30.6 PG Mean Corpuscular Hemoglobin Concent 34.8 % Red Cell Distribution Width 14.2 % Platelet Count 193 TH/MM3 Mean Platelet Volume 9.9 FL Neutrophils (%) (Auto) 62.3 % Lymphocytes (%) (Auto) 26.0 % Monocytes (%) (Auto) 8.2 % Eosinophils (%) (Auto) 2.7 % Basophils (%) (Auto) 0.8 % Neutrophils # (Auto) 3.6 TH/MM3 Lymphocytes # (Auto) 1.5 TH/MM3 Monocytes # (Auto) 0.5 TH/MM3 Eosinophils # (Auto) 0.2 TH/MM3 Basophils # (Auto) 0.0 TH/MM3 CBC Comment DIFF FINAL Differential Comment Blood Urea Nitrogen 20 MG/DL Creatinine 1.12 MG/DL Random Glucose 101 MG/DL Total Protein 7.8 GM/DL Albumin 4.4 GM/DL Calcium Level 9.1 MG/DL Alkaline Phosphatase 93 U/L Aspartate Amino Transf (AST/SGOT) 15 U/L Alanine Aminotransferase (ALT/SGPT) 24 U/L Total Bilirubin 1.0 MG/DL Sodium Level 140 MEQ/L Potassium Level 3.6 MEQ/L Chloride Level 108 MEQ/L Carbon Dioxide Level 24.8 MEQ/L Anion Gap 7 MEQ/L Estimat Glomerular Filtration Rate 72 ML/MIN Lipase 94 U/L Urine Color VIET Urine Turbidity CLEAR Urine pH 6.0 Urine Specific [place] 1.037 Urine Protein 30 mg/dL Urine Glucose (UA) NEG mg/dL Urine Ketones NEG mg/dL Urine Occult Blood NEG Urine Nitrite NEG Urine Bilirubin NEG Urine Urobilinogen 4.0 MG/DL Urine Leukocyte Esterase NEG Urine RBC LESS THAN 1 /hpf Urine WBC 2 /hpf Urine Bacteria RARE /hpf Urine Mucus MOD /lpf Microscopic Urinalysis Comment CULT NOT INDICATED MDM Medical Decision Making Medical Screen Exam Complete: Yes Emergency Medical Condition: Yes Medical Record Reviewed: Yes Interpretation(s) Laboratory Tests Test 11/25/16 07:55 11/25/16 08:35 Monocytes (%) (Auto) 8.2 % (0.0-8.0) Blood Urea Nitrogen 20 MG/DL (7-18) Chloride Level 108 MEQ/L (98-107) Estimat Glomerular Filtration Rate 72 ML/MIN (>89) Urine Color VIET (YELLW/STRAW) Urine Specific [place] 1.037 (1.002-1.035) Urine Protein 30 mg/dL (NEG-TRACE) Urine Urobilinogen 4.0 MG/DL (LESS THAN Urine Bacteria RARE /hpf (NONE) Urine Mucus MOD /lpf (OCC) Last 24 hours Impressions Abdomen/Pelvis CT 11/25/16 0800 Signed Impressions: Service Date/Time: , November 25, 2016 08:58 - CONCLUSION: Peritoneal catheter was scattered amounts of free fluid. No obvious palpitation. One area of small bowel does appear to be slightly more loculated possibly related to an adhesion but there is no evidence of acute obstruction or acute pathology. Elmer Stearns MD Differential Diagnosis Right lower quadrant abdominal pains with nausea and vomiting: Gastroenteritis versus diverticulitis versus appendicitis versus renal colic Narrative Course Labwork and CAT scan did not show significant acute processes. However, this is appear to be some signs of adhesions in the midabdomen. There is no signs of overt obstruction. Patient had been given IV fluids, pain medications, and nausea medications per however, he is continuing to vomit in the ER and at this point considering the ongoing symptoms, my plan would be to admit him as an observation. Case was discussed with Dr. Stratton of general surgery who states he will see the patient although he is not sure whether the adhesions itself is causing the symptoms. Case was discussed with Dr. Gutierrez for observation admission. Diagnosis Primary Impression: Vomiting Additional Impression: Intra-abdominal adhesions Admitting Information Admitting Physician Requests: Admit Scripts No Active Prescriptions or Reported Meds Maura Sousa MD Nov 25, 2016 08:04
[2016-11-25 08:25] LABS: AUTOMATED NEUTROPHIL # 3.6 TH/MM3 (1.8-7.7); BASOPHIL % 0.8 % (0.0-2.0); EOSINOPHIL # 0.2 TH/MM3 (0-0.4); EOSINOPHIL % 2.7 % (0.0-4.0); HEMATOCRIT 44.2 % (39.0-51.0); HEMO FLAGS DIFF FINAL; LYMPHOCYTE # 1.5 TH/MM3 (1.0-4.8); MEAN CELL VOLUME 87.8 FL (80.0-100.0); MEAN CORPUSCULAR HEMOGLOBIN 30.6 PG (27.0-34.0); MEAN CORPUSCULAR HGB CONC 34.8 % (32.0-36.0); MONO % 8.2 % (0.0-8.0); NEUT % 62.3 % (16.0-70.0); PLATELET COUNT 193 TH/MM3 (150-450); RED BLOOD COUNT 5.04 MIL/MM3 (4.50-5.90); RED CELL DISTRIBUTION WIDTH 14.2 % (11.6-17.2); WHITE BLOOD COUNT 5.8 TH/MM3 (4.0-11.0)
[2016-11-25 08:41] LABS: ALT (GPT) 24 U/L (12-78); ANION GAP 7 MEQ/L (5-15); AST (GOT) 15 U/L (15-37); BICARBONATE 24.8 MEQ/L (21.0-32.0); BLOOD UREA NITROGEN 20 MG/DL (7-18); CHLORIDE 108 MEQ/L (98-107); GLOMERULAR FILTRATION RATE 72 ML/MIN (>89); POTASSIUM 3.6 MEQ/L (3.5-5.1); SODIUM (NA) 140 MEQ/L (136-145)
[2016-11-25 08:43] LABS: ALKALINE PHOSPHATASE 93 U/L (45-117)
[2016-11-25 08:59] LABS: BACTERIA, URINE RARE /hpf; BLOOD, URINE NEG (NEG); COMMENT (UR) CULT NOT INDICATED; CULTURE IF INDICATED CULT NOT INDICATED; GLUCOSE,URINE NEG (NEG); KETONE, URINE NEG (NEG); MUCUS URINE MOD /lpf (OCC); NITRITE,URINE NEG (NEG)
[2016-11-25 09:01] LABS: URINE COLOR AMBER (YELLW/STRAW)
--- NOTE | 2016-11-25 09:21 | RADRPT ---
EXAM DATE/TIME: 11/25/2016 08:58 [facility] COMPARISON: No previous studies available for comparison. INDICATIONS : Right upper quadrant pain for 3 weeks IV CONTRAST: 94 cc Visipaque (iodixanol) IV ORAL CONTRAST: No oral contrast ingested. RADIATION DOSE: 9.96 CTDIvol (mGy) MEDICAL HISTORY : None SURGICAL HISTORY : Appendectomy. ENCOUNTER: Initial ACUITY: 3 weeks PAIN SCALE: 6/10 LOCATION: Right upper quadrant TECHNIQUE: Volumetric scanning of the abdomen and pelvis was performed. Using automated exposure control and ad justment of the mA and/or kV according to patient size, radiation dose was kept as low as reasonably achievable to obtain optimal diagnostic quality images. DICOM format image data is available electro nically for review and comparison. FINDINGS: LOWER LUNGS: The visualized lower lungs are clear. LIVER: Homogeneous density without lesion. There is no dilation of the biliary tree. No calcified gallston es. SPLEEN: Normal size without lesion. PANCREAS: Within normal limits. KIDNEYS: Normal in size and shape. There is no mass, stone or hydronephrosis. ADRENAL GLANDS: Within normal limits. VASCULAR: There is no aortic aneurysm. BOWEL/MESENTERY: There is a shunt in the left midabdomen with some surrounding free fluid without loculation. The sto mach, small bowel, and colon demonstrate no acute abnormality. In the mid pelvis there is a rounded a dennise of nondilated noninflamed small bowel which appears to be surrounded by a possible adhesion ( tana ges 67 through 79). There is no free intraperitoneal air or fluid. Few small mesenteric lymph nodes. ABDOMINAL WALL: Within normal limits. RETROPERITONEUM: There is no lymphadenopathy. BLADDER: No wall thickening or mass. REPRODUCTIVE: Within normal limits. INGUINAL: There is no lymphadenopathy or hernia. MUSCULOSKELETAL: Within normal limits for patient age. Intrathecal catheter in good position. CONCLUSION: Peritoneal catheter was scattered amounts of free fluid. No obvious palpitation. One area of small kristen wel does appear to be slightly more loculated possibly related to an adhesion but there is no evidenc e of acute obstruction or acute pathology. Elmer Stearns MD on November 25, 2016 at 9:14 Board Certified Radiologist. This report was verified electronically.
[2016-11-25 11:05] VITALS: BP 115/59; PULSE 58; RESP 16; O2SAT 100
[2016-11-25] MEDS ORDERED: NALOXONE HCL 0.4 MG/ML AMP IV PUSH PRN (11:30)
[2016-11-25] MEDS ORDERED: MAGNESIUM HYDROXIDE SUSP 30 ML CUP PO PRN (11:30)
[2016-11-25] MEDS ORDERED: LACTULOSE SYRUP 20 GM/30 ML CUP PO PRN (11:30)
[2016-11-25] MEDS ORDERED: ONDANSETRON HCL 4 MG/2 ML VIAL IVP PRN (11:30)
[2016-11-25] MEDS ORDERED: SENNOSIDES 8.6 MG TAB PO PRN (11:30)
[2016-11-25] MEDS ORDERED: ACETAMINOPHEN/HYDROcodone 325 MG/5 MG TAB PO PRN (11:30)
[2016-11-25] MEDS ORDERED: BISACODYL 10 MG SUPP RECTAL PRN (11:30)
[2016-11-25] MEDS ORDERED: ACETAMINOPHEN/HYDROcodone 325 MG/7.5 MG TAB PO PRN ×2 (11:30→20:15)
--- NOTE | 2016-11-25 11:42 | PD.CONS ---
cc: Quang Stratton MD [facility] Service General Surgery Consult Requested By Dr. Sousa Reason for Consult Nausea/Vomiting RUQ pain Primary Care Physician No Primary Care Physician History of Present Illness This is a 40 year old female with a past medical history of hydrocephalus with shunt placement and approximally 23 revisions. He has had RIGHT upper quadrant for about four weeks. Three weeks ago he went to [facility] in [place] for the abdominal pain. He had a US of the abdomen which was normal. He was sent home. The pain never resolved. Over the past two days the pain increased and he started having nausea with vomiting. A CT abdomen/pelvis was obtained which shows the EMERGENCY MANAGEMENT CONSULTANT catheter in place with scattered free fluid. He has a normal white blood cell count. A General Surgery consultation has been requested for abdominal pain with associated nausea and vomiting. Review of Systems Constitutional: COMPLAINS OF: Chills, DENIES: Weight gain, Weight loss, Change in appetite Endocrine: DENIES: Polydipsia, Polyuria, Polyphagia Eyes: DENIES: Diplopia, Eye inflammation Ears, nose, mouth, throat: DENIES: Hearing loss, Nasal discharge Respiratory: DENIES: Cough, Wheezing, Shortness of breath Cardiovascular: DENIES: Chest pain, Palpitations, Dyspnea on Exertion Gastrointestinal: COMPLAINS OF: Abdominal pain, Nausea, Vomiting, DENIES: Constipation, Diarrhea Genitourinary: DENIES: Urinary incontinence, Dysuria Musculoskeletal: DENIES: Muscle aches Integumentary: DENIES: Abnormal pigmentation Hematologic/lymphatic: DENIES: Bruising Immunologic/allergic: DENIES: Eczema Neurologic: DENIES: Headache, Localized weakness Psychiatric: DENIES: Confusion, Mood changes, Depression Past Family Social History Past Medical History Hydrocephalus with shunt placement Past Surgical History Laparoscopic appendectomy-5 years ago EMERGENCY MANAGEMENT CONSULTANT shunt placement- originally placed in 2000 (in [place]) and has been revised approximately 23 times since placement (locally by Dr. Rosales) Reported Medications None Allergies: Coded Allergies: morphine (Unverified Allergy, Mild, Itching, 11/25/16) hydromorphone (Unverified Adverse Reaction, Intermediate, Chest Pain, 11/25) adhesive (Unverified Adverse Reaction, Mild, RED WHELPS, 11/25/16) Uncoded Allergies: MORPHINE ITCHING (Allergy, Mild, 12/20/06) Active Ordered Medications Current Medications Medications (Trade) Dose Ordered Sig/Verónica Route Start Time Stop Time Status Last Admin (NS Flush) 2 ml UNSCH PRN IV FLUSH 11/25/16 08:00 11/25/16 08:12 (NS Flush) 2 ml UNSCH PRN IV FLUSH 11/25/16 08:00 Sodium Chloride 1,000 ml @ 100 mls/hr Q10H IV 11/25/16 11:26 UNV (NS Flush) 2 ml UNSCH PRN IV FLUSH 11/25/16 11:30 UNV (NS Flush) 2 ml BID IV FLUSH 11/25/16 21:00 UNV (Zofran Inj) 4 mg Q6H PRN IVP 11/25/16 11:30 UNV (Narcan Inj) 0.4 mg UNSCH PRN IV PUSH 11/25/16 11:30 UNV (Margaret-Colace) 1 tab BID PO 11/25/16 21:00 UNV (Milk Of Magnesia Liq) 30 ml Q12H PRN PO 11/25/16 11:30 UNV (Senokot) 17.2 mg Q12H PRN PO 11/25/16 11:30 UNV (Dulcolax Supp) 10 mg DAILY PRN RECTAL 11/25/16 11:30 UNV (Lactulose Liq) 30 ml DAILY PRN PO 11/25/16 11:30 UNV ([place] 5-325 Mg) 1 tab Q4H PRN PO 11/25/16 11:30 UNV ([place] 7.5-325 Mg) 1 tab Q6H PRN PO 11/25/16 11:30 UNV Family History Noncontributory Social History Positive tobacco use 1 can of chewing tobacco last 3 days Positive EtOH useone beer daily Denies illicit drug use Physical Exam Vital Signs Vital Signs Date Time Temp Pulse Resp B/P (MAP) Pulse Ox O2 Delivery O2 Flow Rate FiO2 11/25/16 11:05 58 16 115/59 (77) 100 Room Air 11/25/16 07:59 24 96 Room Air 11/25/16 07:46 98.7 89 13 142/82 (150) 98 Physical Exam GENERAL: Pleasant 40 year old male resting in bed in no acute distress. SKIN: Warm and dry. HEAD: Atraumatic. Normocephalic. EYES: Pupils equal and round. No scleral icterus. No injection or drainage. ENT: No nasal bleeding or discharge. Mucous membranes pink and moist. NECK: Trachea midline. CARDIOVASCULAR: Regular rate and rhythm. RESPIRATORY: No accessory muscle use. Clear to auscultation. Breath sounds equal bilaterally. GASTROINTESTINAL: Abdomen soft,, nondistended. Tender in RUQ with palpation. Tender with palpation in RIGHT pelvis area. Superior to umbilicus is well healed scar. MUSCULOSKELETAL: Extremities without clubbing, cyanosis, or edema. No obvious deformities. NEUROLOGICAL: Awake and alert. No obvious cranial nerve deficits. Motor grossly within normal limits. Five out of 5 muscle strength in the arms and legs. Normal speech. PSYCHIATRIC: Appropriate mood and affect; insight and judgment normal. Laboratory Laboratory Tests Test 11/25/16 07:55 11/25/16 08:35 White Blood Count 5.8 Red Blood Count 5.04 Hemoglobin 15.4 Hematocrit 44.2 Mean Corpuscular Volume 87.8 Mean Corpuscular Hemoglobin 30.6 Mean Corpuscular Hemoglobin Concent 34.8 Red Cell Distribution Width 14.2 Platelet Count 193 Mean Platelet Volume 9.9 Neutrophils (%) (Auto) 62.3 Lymphocytes (%) (Auto) 26.0 Monocytes (%) (Auto) 8.2 Eosinophils (%) (Auto) 2.7 Basophils (%) (Auto) 0.8 Neutrophils # (Auto) 3.6 Lymphocytes # (Auto) 1.5 Monocytes # (Auto) 0.5 Eosinophils # (Auto) 0.2 Basophils # (Auto) 0.0 CBC Comment DIFF FINAL Differential Comment Blood Urea Nitrogen 20 Creatinine 1.12 Random Glucose 101 Total Protein 7.8 Albumin 4.4 Calcium Level 9.1 Alkaline Phosphatase 93 Aspartate Amino Transf (AST/SGOT) 15 Alanine Aminotransferase (ALT/SGPT) 24 Total Bilirubin 1.0 Sodium Level 140 Potassium Level 3.6 Chloride Level 108 Carbon Dioxide Level 24.8 Anion Gap 7 Estimat Glomerular Filtration Rate 72 Lipase 94 Urine Color VIET Urine Turbidity CLEAR Urine pH 6.0 Urine Specific [place] 1.037 Urine Protein 30 Urine Glucose (UA) NEG Urine Ketones NEG Urine Occult Blood NEG Urine Nitrite NEG Urine Bilirubin NEG Urine Urobilinogen 4.0 Urine Leukocyte Esterase NEG Urine RBC LESS THAN 1 Urine WBC 2 Urine Bacteria RARE Urine Mucus MOD Microscopic Urinalysis Comment CULT NOT INDICATED Result Diagram: 11/25/16 0755 11/25/16 0755 Imaging Last 48 hours Impressions Abdomen/Pelvis CT 11/25/16 0800 Signed Impressions: Service Date/Time: November 08:58 - CONCLUSION: Peritoneal catheter was scattered amounts of free fluid. No obvious palpitation. One area of small bowel does appear to be slightly more loculated possibly related to an adhesion but there is no evidence of acute obstruction or acute pathology. Elmer Stearns MD Assessment and Plan Assessment and Plan 40 year old male with abdominal pain with associated nausea and vomiting -NPO for OR this afternoon -Obtain consent for diagnostic laparoscopy with Dr. Stratton -IVF -CT abd/pelvis reviewed -Thank you for this consult; We will continue to follow Discussed Condition With Dr. Chayito Casas Attending Statement The pt was treated with antibiotics by [facility] for "possible kidney infection" without improvement. He is tender in the R side of the abdomen. He is unable to work. He has no GI or complaints except for the vomiting. He has multiple scars from EMERGENCY MANAGEMENT CONSULTANT shunt manipulations and Lap appie. His EMERGENCY MANAGEMENT CONSULTANT shunt is palpable on the L frontal skull, he says shunt malfunctions in the past created a different set of symptoms. His CT scan was reviewed, There is an unusual looking area of Small bowel in the lower mid abdomen, non obstructing. Due to the persistence of symptoms I have offered diagnostic laparoscopy, possible open surgery. He wishes to proceed. Risks of bleeding, infection, injury to intra abdominal contents, DVT/PE have been discussed, he understands. I left a voicemail for Dr Rosales, his neurosurgeon, to let him know we will look at the EMERGENCY MANAGEMENT CONSULTANT shunt, intra peritoneal. The exam, history, and the medical decision-making described in the above note were completed with the assistance of the mid-level provider. I reviewed and agree with the findings presented. I attest that I had a [id number] encounter with the patient on the same day, and personally performed and documented my assessment and findings in the medical record. Earline Rivera Nov 25, 2016 11:42 Quang Stratton MD Nov 25, 2016 13:26
--- NOTE | 2016-11-25 12:54 | HHI.HP ---
HPI Service [facility] Primary Care Physician No Primary Care Physician Admission Diagnosis intermittent vomiting/abdominal pain/adhesions Diagnoses: Chief Complaint: N/V right sided abdominal pain Travel History International Travel<30 Days: No Contact w/Intl Traveler <30 Da: No Traveled to Known Affected Are: No History of Present Illness Written by Mirian Rhodes PA-C acting as scribe for Dr. Gutierrez on 11/25/16 at 12:47. This is a 40yo male with a PMHX significant for hydrocephalus s/p right parietal shunt with multiple revisions, migraines, h/o NSAID induced ulcers and previous appendectomy who presents to [facility] with complaints of right sided abdominal pain with associated nausea and vomiting for the past month. Patient went to [facility] in [place] approximately 3 weeks ago for the abdominal pain and had an unremarkable abdominal US per patient report. Patient states the pain is constant but waxes and wanes in intensity. He states the pain became much worse over the past two days. He reports 5-6 episodes of nonbloody, bilious vomiting today. He reports chills but denies any fever. He denies any diarrhea or constipation. He denies any bloody stools. He is passing flatus. In the ED, CT abdomen/pelvis was obtained showing peritoneal catheter was scattered amounts of free fluid. One area of small bowel does appear to be slightly more loculated possibly related to an adhesion but there is no evidence of acute obstruction or acute pathology. Patients white count is WNL and he is afebrile. Dr. Stratton of was consulted while patient was in the ED and plans to take patient to the OR later today for diagnostic laparoscopy. Review of Systems Except as stated in HPI: all other systems reviewed are Neg Past Family Social History Past Medical History Hydrocephalus Migraines Hx of NSAID induced gastric ulcers Past Surgical History Right parietal lobe COVER SEAMER shunt with multiple revision surgeries Appendectomy Reported Medications Patient denies taking any prescribed medications at home Allergies: Coded Allergies: morphine (Unverified Allergy, Mild, Itching, 11/25/16) hydromorphone (Unverified Adverse Reaction, Intermediate, Chest Pain, 11/25) adhesive (Unverified Adverse Reaction, Mild, RED WHELPS, 11/25/16) Uncoded Allergies: MORPHINE ITCHING (Allergy, Mild, 12/20/06) Active Ordered Medications Current Medications Medications (Trade) Dose Ordered Sig/Verónica Route Start Time Stop Time Status Last Admin (NS Flush) 2 ml UNSCH PRN IV FLUSH 11/25/16 08:00 11/25/16 08:12 (NS Flush) 2 ml UNSCH PRN IV FLUSH 11/25/16 08:00 Sodium Chloride 1,000 ml @ 100 mls/hr Q10H IV 11/25/16 11:26 (NS Flush) 2 ml UNSCH PRN IV FLUSH 11/25/16 11:30 (NS Flush) 2 ml BID IV FLUSH 11/25/16 21:00 (Zofran Inj) 4 mg Q6H PRN IVP 11/25/16 11:30 (Narcan Inj) 0.4 mg UNSCH PRN IV PUSH 11/25/16 11:30 (Margaret-Colace) 1 tab BID PO 11/25/16 21:00 (Milk Of Magnesia Liq) 30 ml Q12H PRN PO 11/25/16 11:30 (Senokot) 17.2 mg Q12H PRN PO 11/25/16 11:30 (Dulcolax Supp) 10 mg DAILY PRN RECTAL 11/25/16 11:30 (Lactulose Liq) 30 ml DAILY PRN PO 11/25/16 11:30 ([place] 5-325 Mg) 1 tab Q4H PRN PO 11/25/16 11:30 ([place] 7.5-325 Mg) 1 tab Q6H PRN PO 11/25/16 11:30 Family History Mother, heart disease s/p CABG x3 Father, alcohol related liver cirrhosis Social History Patient reports smokeless tobacco use of one can every three days. Patient reports EtOH consumption of one beer once every couple of day. Patient denies any illicit drug use. Physical Exam Vital Signs Vital Signs Date Time Temp Pulse Resp B/P (MAP) Pulse Ox O2 Delivery O2 Flow Rate FiO2 11/25/16 11:05 58 16 115/59 (77) 100 Room Air 11/25/16 07:59 24 96 Room Air 11/25/16 07:46 98.7 89 13 142/82 (963) 98 Physical Exam GENERAL: This is a well-nourished, well-developed patient, in no apparent distress. Awake and alert. Lying in hospital bed. SKIN: No rashes, ecchymoses or lesions. Cool and dry. HEAD: Atraumatic. Normocephalic. No temporal or scalp tenderness. EYES: Pupils equal round and reactive. Extraocular motions intact. No scleral icterus. No injection or drainage. ENT: Nose without drainage. Throat without erythema, tonsillar hypertrophy or exudate. Uvula midline. Airway patent. NECK: Trachea midline. No lymphadenopathy. Supple, nontender, no meningeal signs. CARDIOVASCULAR: Regular rate and rhythm without murmurs. RESPIRATORY: Clear to auscultation. Breath sounds equal bilaterally. No wheezes. GASTROINTESTINAL: Abdomen soft, nondistended. Multiple well healed surgical incisions noted. (+)tenderness elicited with palpation of both the right upper and lower quadrants worse over the lower quadrant. No hepato-splenomegaly, or palpable masses. No guarding. MUSCULOSKELETAL: Extremities without edema. No joint tenderness, effusion, or edema noted. No calf tenderness. NEUROLOGICAL: Awake and alert. Able to move all extremities. Motor and sensory function grossly intact in BUE and BLE. Normal speech. Laboratory Laboratory Tests Test 11/25/16 07:55 11/25/16 08:35 White Blood Count 5.8 Red Blood Count 5.04 Hemoglobin 15.4 Hematocrit 44.2 Mean Corpuscular Volume 87.8 Mean Corpuscular Hemoglobin 30.6 Mean Corpuscular Hemoglobin Concent 34.8 Red Cell Distribution Width 14.2 Platelet Count 193 Mean Platelet Volume 9.9 Neutrophils (%) (Auto) 62.3 Lymphocytes (%) (Auto) 26.0 Monocytes (%) (Auto) 8.2 Eosinophils (%) (Auto) 2.7 Basophils (%) (Auto) 0.8 Neutrophils # (Auto) 3.6 Lymphocytes # (Auto) 1.5 Monocytes # (Auto) 0.5 Eosinophils # (Auto) 0.2 Basophils # (Auto) 0.0 CBC Comment DIFF FINAL Differential Comment Blood Urea Nitrogen 20 Creatinine 1.12 Random Glucose 101 Total Protein 7.8 Albumin 4.4 Calcium Level 9.1 Alkaline Phosphatase 93 Aspartate Amino Transf (AST/SGOT) 15 Alanine Aminotransferase (ALT/SGPT) 24 Total Bilirubin 1.0 Sodium Level 140 Potassium Level 3.6 Chloride Level 108 Carbon Dioxide Level 24.8 Anion Gap 7 Estimat Glomerular Filtration Rate 72 Lipase 94 Urine Color VIET Urine Turbidity CLEAR Urine pH 6.0 Urine Specific [place] 1.037 Urine Protein 30 Urine Glucose (UA) NEG Urine Ketones NEG Urine Occult Blood NEG Urine Nitrite NEG Urine Bilirubin NEG Urine Urobilinogen 4.0 Urine Leukocyte Esterase NEG Urine RBC LESS THAN 1 Urine WBC 2 Urine Bacteria RARE Urine Mucus MOD Microscopic Urinalysis Comment CULT NOT INDICATED Result Diagram: 11/25/16 0755 11/25/16 075 Imaging Last Impressions Abdomen/Pelvis CT 11/25/16 0800 Signed Impressions: Service Date/Time: , November 25, 2016 08:58 - CONCLUSION: Peritoneal catheter was scattered amounts of free fluid. No obvious palpitation. One area of small bowel does appear to be slightly more loculated possibly related to an adhesion but there is no evidence of acute obstruction or acute pathology. MD Mikki Larios VTE Risk Assessment Caprini VTE Risk Assessment: Mod/High Risk (score >= 2) VTE Pharm Contraindication: surgery today Caprini Risk Assessment Model Point Value = 1 Point Value = 2 Point Value = 3 Point Value = 5 Age 41-60 Minor surgery BMI > 25 kg/m2 Swollen legs Varicose veins or History of unexplained or recurrent spontaneous Oral contraceptives or hormone replacement Sepsis (< 1 month) Serious lung disease, including pneumonia (< 1 month) Abnormal pulmonary function Acute myocardial infarction Congestive heart failure (< 1 month) History of inflammatory bowel disease Medical patient at bed rest Age 61-74 Arthroscopic surgery Major open surgery (> 45 min) Laparoscopic surgery (> 45 min) Malignancy Confined to bed (> 72 hours) Immobilizing plaster cast Central venous access Age >= 75 History of VTE Family history of VTE Factor V Leiden Prothrombin [id number] Lupus anticoagulant Anticardiolipin antibodies Elevated serum homocysteine Heparin-induced thrombocytopenia Other congenital or acquired thrombophilia Stroke (< 1 month) Elective arthroplasty Hip, pelvis, or leg fracture Acute spinal cord injury (< 1 month) Prophylaxis Regimen Total Risk Factor Score Risk Level Prophylaxis Regimen 0-1 Low Early ambulation 2 Moderate Order ONE of the following: *Sequential Compression Device (SCD) *Heparin 5000 units SQ BID 3-4 Higher Order ONE of the following medications: *Heparin 5000 units SQ TID *Enoxaparin/Lovenox 40 mg SQ daily (WT < 150 kg, CrCl > 30 mL/min) *Enoxaparin/Lovenox 30 mg SQ daily (WT < 150 kg, CrCl > 10-29 mL/min) *Enoxaparin/Lovenox 30 mg SQ BID (WT < 150 kg, CrCl > 30 mL/min) AND/OR *Sequential Compression Device (SCD) 5 or more Highest Order ONE of the following medications: *Heparin 5000 units SQ TID (Preferred with Epidurals) *Enoxaparin/Lovenox 40 mg SQ daily (WT < 150 kg, CrCl > 30 mL/min) *Enoxaparin/Lovenox 30 mg SQ daily (WT < 150 kg, CrCl > 10-29 mL/min) *Enoxaparin/Lovenox 30 mg SQ BID (WT < 150 kg, CrCl > 30 mL/min) AND *Sequential Compression Device (SCD) Assessment and Plan Assessment and Plan 40yo male with a PMHX significant for hydrocephalus s/p right parietal shunt with multiple revisions, migraines, h/o NSAID induced ulcers and previous appendectomy who presents to [facility] with complaints of right sided abdominal pain with associated nausea and vomiting for the past month. Right sided abdominal pain with nausea and vomiting - CT abd/pelvis personally reviewed showing peritoneal catheter was scattered amounts of free fluid. One area of small bowel does appear to be slightly more loculated possibly related to an adhesion but there is no evidence of acute obstruction or acute pathology. - patient is afebrile. White count is normal. UA is not suggestive of infection. - Dr. Stratton of consulted and has seen the patient - appreciate his assistance. Plans for diagnostic laparoscopy later today. - NPO - IVF - Zofran prn N/V - pain management Hydrocephalus s/p COVER SEAMER shunt with multiple revisions - stable DVT prophylaxis - bilateral SCD/GABRIELLA hose - DVT chemoprophylaxis contraindicated secondary to surgical intervention today This note was transcribed by chaz Rhodes. I, Dr. Adriana Gutierrez personally performed the history, physical exam, and medical decision making; and confirmed the accuracy of the information in the transcribed note. Authenticated by Dr. Adriana Gutierrez on 9/14/17 at 12:47. Code Status DNR Discussed Condition With patient, ED physician Mirian Rhodes Nov 25, 2016 12:54 Adriana Gutierrez MD Nov 25, 2016 18:40
[2016-11-25 13:00] VITALS: BP 138/82; PULSE 55; RESP 18; O2SAT 99
[2016-11-25] MEDS ORDERED: ceFAZolin 2 GM PREMIX 50 ML IV SCH (13:30)
[2016-11-25] MEDS ORDERED: NEOSTIGMINE 3 MG/3 ML SYR IV ONE (14:08)
[2016-11-25] MEDS ORDERED: PROPOFOL 200 MG/20 ML AMP IV ONE (14:08)
[2016-11-25] MEDS ORDERED: ePHEDrine/NS 25 MG/5 ML SYR IV ONE (14:08)
[2016-11-25] MEDS ORDERED: PHENYLEPH/NS 1000 MCG/10 ML SYR IV ONE (14:08)
[2016-11-25] MEDS ORDERED: ONDANSETRON HCL 4 MG/2 ML VIAL IV PUSH ONE (14:08)
[2016-11-25 16:00] VITALS: BP 127/76; PULSE 56; RESP 17; TEMP 98.2; O2SAT 98
[2016-11-25] MEDS ORDERED: BUPIVACAINE/EPINEPHRINE 0.25% 50 ML VIAL ONE (16:11)
[2016-11-25] MEDS ORDERED: ACETAMINOPHEN 1000 MG/100 ML 100 ML IV ONE (18:00)
--- NOTE | 2016-11-25 19:57 | PD.OP ---
Operative Report Date of Surgery: Nov 25, 2016 Preoperative Diagnosis: abdominal pain, ASSISTANT SUPERINTENDENT FOR CURRICULUM shunt, abnormal CT Postoperative Diagnosis: same, adhesions, matted loops of ileum Procedure: dx laparoscopy, adhesiolysis, ex lap sb resection Anesthesia: general Surgeon: Quang Stratton Production Laborer(s): Reynold Operation and Findings: adhesion of omentum to umbilicus, extraperitoneal cecum and sigmoid colon. Matted loops of distal ileum, resected and sent to pathology. Ileocecal anastomosis. EBL 100ml Quang Stratton MD Nov 25, 2016 19:57
[2016-11-25] MEDS ORDERED: DO NOT ADM ANY ANTICOAGULANT DRUGS PRN (20:05)
[2016-11-25] MEDS ORDERED: Post-op Orders (for Pharmacy) MISC XX ONE (20:15)
[2016-11-25] MEDS ORDERED: ZOLPIDEM TARTRATE 5 MG TAB PO PRN (20:15)
[2016-11-25] MEDS ORDERED: diphenhydrAMINE HCL 25 MG CAP PO PRN (20:15)
[2016-11-25] MEDS: LACTATED RINGER'S 1000 ML INJ 1,000 ML IV SCH (20:45)
[2016-11-25] MEDS: KETOROLAC TROMETHAMINE 30 MG/ML (IVP) VIAL IVP SCH (20:45)
[2016-11-25] MEDS: SODIUM CHLORIDE 0.9% FLUSH 10 ML FLUSH IV FLUSH SCH (21:00)
[2016-11-25] MEDS ORDERED: SODIUM CHLORIDE 0.9% FLUSH 10 ML FLUSH IV FLUSH SCH (21:00)
[2016-11-25] MEDS: metroNIDAZOLE 500 MG INJ 100 ML IV SCH (21:44)
[2016-11-25] MEDS: DOCUSATE SODIUM 50 MG/SENNA 8.6 MG TAB PO SCH (21:44)
[2016-11-25 22:12] VITALS: BP 130/69; PULSE 60; RESP 18; TEMP 98.2; O2SAT 96
[2016-11-26] VITALS (7 sets, daily range): BP systolic 100–134; BP diastolic 56–74; PULSE 54–74; RESP 18–20; TEMP 98.2–99.1; O2SAT 94–96
[2016-11-26] MEDS: ACETAMINOPHEN 1000 MG/100 ML VIAL IV SCH ×5 (00:14→17:07)
[2016-11-26] MEDS: KETOROLAC TROMETHAMINE 30 MG/ML (IVP) VIAL IVP SCH ×4 (03:39→23:17)
[2016-11-26] MEDS: metroNIDAZOLE 500 MG INJ 100 ML IV SCH ×2 (05:19→13:11)
[2016-11-26] MEDS: LACTATED RINGER'S 1000 ML INJ 1,000 ML IV SCH ×2 (05:20→16:52)
--- NOTE | 2016-11-26 09:59 | HHI.PR ---
Subjective Remarks Pain is controlled when not moving, 5/10 but with movement goes up to 7 but it is still tolerable. Wants to go home today and feels comfortable doing so. no nausea or vomiting, passing flatus but no BM Objective Vitals Vital Signs Date Time Temp Pulse Resp B/P (MAP) Pulse Ox O2 Delivery O2 Flow Rate FiO2 11/26/16 07:51 98.5 55 20 121/60 (80) 95 11/26/16 06:54 96 21 11/26/16 05:01 98.4 54 20 108/60 (76) 96 11/26/16 00:00 98.2 55 20 113/57 (75) 94 11/25/16 22:12 98.2 60 18 130/69 (89) 96 11/25/16 20:30 70 11 154/80 (104) 99 Room Air 11/25/16 20:15 82 24 167/77 (107) 95 Room Air 11/25/16 20:06 98.3 82 13 140/80 (100) 96 Nasal Cannula 2 11/25/16 16:00 98.2 56 17 127/76 (93) 98 11/25/16 15:45 11/25/16 13:00 55 18 138/82 (100) 99 Room Air 11/25/16 11:05 58 16 115/59 (77) 100 Room Air I/O 11/25/16 11/25/16 11/25/16 11/26/16 11/26/16 11/26/16 07:00 15:00 23:00 07:00 15:00 23:00 Intake Total 120 ml Output Total 100 ml Balance 20 ml Intake IV Total 120 ml Output Estimated Blood Loss 100 ml # Voids 1 1 # Bowel Movements 1 Result Diagram: 11/25/16 0755 11/25/16 0755 Imaging Last Impressions Abdomen/Pelvis CT 11/25/16 0800 Signed Impressions: Service Date/Time: November 08:58 - CONCLUSION: Peritoneal catheter was scattered amounts of free fluid. No obvious palpitation. One area of small bowel does appear to be slightly more loculated possibly related to an adhesion but there is no evidence of acute obstruction or acute pathology. Elmer Stearns MD Objective Remarks GENERAL: This is a well-nourished, well-developed patient, in no apparent distress. Awake and alert. Lying in hospital bed. SKIN: surgical incisions healing well w no signs of infection, dressing in place d/c/i ENT: Nose without drainage. Airway patent. CARDIOVASCULAR: Regular rate and rhythm without murmurs. RESPIRATORY: Clear to auscultation. Breath sounds equal bilaterally. No wheezes. GASTROINTESTINAL: Abdomen soft, nondistended. Multiple well healed surgical incisions noted. appropriately tender to palpation MUSCULOSKELETAL: Extremities without edema. No calf tenderness. NEUROLOGICAL: Awake and alert. Able to move all extremities. Motor and sensory function grossly intact in BUE and BLE. Normal speech. A/P Assessment and Plan 40yo male with a PMHX significant for hydrocephalus s/p right parietal shunt with multiple revisions, migraines, h/o NSAID induced ulcers and previous appendectomy who presents to [facility] with complaints of right sided abdominal pain with associated nausea and vomiting for the past month. Right sided abdominal pain with nausea and vomiting - CT abd/pelvis personally reviewed showing peritoneal catheter was scattered amounts of free fluid. One area of small bowel does appear to be slightly more loculated possibly related to an adhesion but there is no evidence of acute obstruction or acute pathology. s/p diagnostic lap w adhesiolysis and ex lab SB resection POD 1. management per Gen sx. Pt anxious to go home today however will wait for final recs from . continue pain control Hydrocephalus s/p OUTSIDE MACHINIST shunt with multiple revisions - stable DVT prophylaxis - bilateral SCD/GABRIELLA hose - DVT chemoprophylaxis per gen sx Discharge Planning awaiting final recs from gen sx Adriana Gutierrez MD Nov 26, 2016 09:59
[2016-11-26] MEDS: DOCUSATE SODIUM 50 MG/SENNA 8.6 MG TAB PO SCH ×2 (10:13→23:17)
[2016-11-26] MEDS: SODIUM CHLORIDE 0.9% FLUSH 10 ML FLUSH IV FLUSH SCH ×2 (10:14→23:17)
[2016-11-26 10:53] LABS: AUTOMATED NEUTROPHIL # 5.1 TH/MM3 (1.8-7.7); BASOPHIL % 0.6 % (0.0-2.0); EOSINOPHIL # 0.1 TH/MM3 (0-0.4); EOSINOPHIL % 1.8 % (0.0-4.0); HEMATOCRIT 39.3 % (39.0-51.0); HEMO FLAGS DIFF FINAL; LYMPH % 14.5 % (9.0-44.0); MEAN CELL VOLUME 90.1 FL (80.0-100.0); MEAN CORPUSCULAR HEMOGLOBIN 30.6 PG (27.0-34.0); MONO % 7.4 % (0.0-8.0); NEUT % 75.7 % (16.0-70.0); PLATELET COUNT 143 TH/MM3 (150-450); RED BLOOD COUNT 4.37 MIL/MM3 (4.50-5.90); RED CELL DISTRIBUTION WIDTH 13.9 % (11.6-17.2); WHITE BLOOD COUNT 6.7 TH/MM3 (4.0-11.0)
[2016-11-26 11:06] LABS: BICARBONATE 27.5 MEQ/L (21.0-32.0); POTASSIUM 3.9 MEQ/L (3.5-5.1)
--- NOTE | 2016-11-26 11:39 | HHI.PR ---
Subjective Subjective Notes doing well. Pain well managed with present regimen. Had small BM, passing flatus. Tolerating liquids without nausea. Preop pain gone, now just incisional discomfort. Objective Vitals/I&O Vital Signs Date Time Temp Pulse Resp B/P (MAP) Pulse Ox O2 Delivery O2 Flow Rate FiO2 11/26/16 07:51 98.5 55 20 121/60 (80) 95 11/26/16 06:54 21 11/25/16 20:30 Room Air 11/25/16 20:06 2 Labs Laboratory Tests Test 11/26/16 10:10 White Blood Count 6.7 Red Blood Count 4.37 Hemoglobin 13.4 Hematocrit 39.3 Mean Corpuscular Volume 90.1 Mean Corpuscular Hemoglobin 30.6 Mean Corpuscular Hemoglobin Concent 34.0 Red Cell Distribution Width 13.9 Platelet Count 143 Mean Platelet Volume 10.2 Neutrophils (%) (Auto) 75.7 Lymphocytes (%) (Auto) 14.5 Monocytes (%) (Auto) 7.4 Eosinophils (%) (Auto) 1.8 Basophils (%) (Auto) 0.6 Neutrophils # (Auto) 5.1 Lymphocytes # (Auto) 1.0 Monocytes # (Auto) 0.5 Eosinophils # (Auto) 0.1 Basophils # (Auto) 0.0 CBC Comment DIFF FINAL Differential Comment Blood Urea Nitrogen 17 Creatinine 1.19 Random Glucose 73 Calcium Level 8.8 Sodium Level 139 Potassium Level 3.9 Chloride Level 105 Carbon Dioxide Level 27.5 Anion Gap 7 Estimat Glomerular Filtration Rate 67 Radiology Last 48 hours Impressions Abdomen/Pelvis CT 11/25/16 0800 Signed Impressions: Service Date/Time: November 08:58 - CONCLUSION: Peritoneal catheter was scattered amounts of free fluid. No obvious palpitation. One area of small bowel does appear to be slightly more loculated possibly related to an adhesion but there is no evidence of acute obstruction or acute pathology. Elmer Stearns MD Cardiovascular: Regular Lungs: Clear Abdomen: Non-distended, Other (dressing dry with small amount of dried bloody drainage.), Post-op tenderness, BS normal Extremities: No edema, Perfused, SCD's on A/P Assessment and Plan POD 1 s/p ex lap SB resection. Doing well. advance diet, walk. May be able to go home tomorrow. Quang Stratton MD Nov 26, 2016 11:39
[2016-11-26] MEDS ORDERED: ENOXAPARIN SODIUM 40 MG/0.4 ML SYRINGE SQ SCH (19:00)
[2016-11-27] MEDS: ACETAMINOPHEN 1000 MG/100 ML VIAL IV SCH ×2 (00:49→05:19)
[2016-11-27] MEDS: KETOROLAC TROMETHAMINE 30 MG/ML (IVP) VIAL IVP SCH ×2 (02:55→09:39)
[2016-11-27] MEDS: LACTATED RINGER'S 1000 ML INJ 1,000 ML IV SCH (02:56)
[2016-11-27 03:42] VITALS: BP 110/60; PULSE 70; RESP 17; TEMP 98; O2SAT 96
[2016-11-27 08:02] VITALS: BP 133/79; PULSE 72; RESP 18; TEMP 98.3; O2SAT 96
--- NOTE | 2016-11-27 09:37 | HHI.PR ---
Subjective Remarks Follow-up for abdominal pain. POD 2 lysis of adhesions and partial small bowel resection. The patient is doing well. Has been tolerating full diet with no nausea. He does have some abdominal soreness from the surgery, but states pain is significantly improved since admission. He had one liquid bowel movement last night. He is ready to go home today. He does do a lot of heavy lifting at work, and understands he needs to be out of work for the next few days. Objective Vitals Vital Signs Date Time Temp Pulse Resp B/P (MAP) Pulse Ox O2 Delivery O2 Flow Rate FiO2 11/27/16 08:02 98.3 72 18 133/79 (97) 96 11/27/16 03:42 98.0 70 17 110/60 (77) 96 11/26/16 20:05 98.7 74 18 134/74 (94) 95 11/26/16 17:54 18 11/26/16 16:48 98.5 68 19 100/56 (71) 94 11/26/16 16:30 17 11/26/16 11:49 99.1 65 19 125/65 (85) 95 I/O 11/26/16 11/26/16 11/26/16 11/27/16 11/27/16 11/27/16 07:00 15:00 23:00 07:00 15:00 23:00 Output Total 200 ml Balance -200 ml Output Urine Total 200 ml # Voids 1 2 # Bowel Movements 2 Result Diagram: 11/26/16 1010 11/26/16 1010 Imaging Last Impressions Abdomen/Pelvis CT 11/25/16 0800 Signed Impressions: Service Date/Time: November 08:58 - CONCLUSION: Peritoneal catheter was scattered amounts of free fluid. No obvious palpitation. One area of small bowel does appear to be slightly more loculated possibly related to an adhesion but there is no evidence of acute obstruction or acute pathology. Elmer Stearns MD Objective Remarks GENERAL: Well-developed well-nourished. In no acute distress. SKIN: Warm and dry. No lesions noted. HEENT: Normocephalic. Pupils equal and round. Mucous membranes pink and moist. CARDIOVASCULAR: Regular rate and rhythm. No murmur appreciated. RESPIRATORY: No accessory muscle use. Clear to auscultation. Breath sounds equal bilaterally. GASTROINTESTINAL: Abdomen soft, non-tender, nondistended. Bowel sounds x4. Midline incision below the umbilicus, clean. MUSCULOSKELETAL: No obvious deformities. No clubbing or cyanosis. No edema. NEUROLOGICAL: Awake and alert. No focal neurological deficits. Moves upper and lower extremities spontaneously. Normal speech. PSYCHIATRIC: Appropriate mood and affect; insight and judgment normal. A/P Assessment and Plan 40yo male with a PMHX significant for hydrocephalus s/p right parietal shunt with multiple revisions, migraines, h/o NSAID induced ulcers and previous appendectomy who presents to [facility] with complaints of right sided abdominal pain with associated nausea and vomiting for the past month. Right sided abdominal pain with nausea and vomiting: Secondary to adhesions. - s/p diagnostic lap w adhesiolysis and ex lab SB resection POD 2. management per Gen sx. Pt anxious to go home pending clearance from . Continue pain control Hydrocephalus s/p [employer] shunt with multiple revisions - stable DVT prophylaxis - bilateral SCD/GABRIELLA hose Discharge Planning Discharge planning when clear by general surgery. After discharge the patient will need light-duty work until cleared by general surgery. Keven Hawley Nov 27, 2016 09:37
[2016-11-27] MEDS: DOCUSATE SODIUM 50 MG/SENNA 8.6 MG TAB PO SCH (09:38)
[2016-11-27] MEDS: SODIUM CHLORIDE 0.9% FLUSH 10 ML FLUSH IV FLUSH SCH (09:39)
[2016-11-27 10:32] VITALS: BP 129/71; PULSE 75; RESP 17; TEMP 98.9; O2SAT 96
[2016-11-27 10:40] VITALS: RESP 16
--- NOTE | 2016-11-27 11:13 | HHI.PR ---
Subjective Subjective Notes feels great, wants to go home. bowels are working. Objective Vitals/I&O Vital Signs Date Time Temp Pulse Resp B/P (MAP) Pulse Ox O2 Delivery O2 Flow Rate FiO2 11/27/16 10:40 16 11/27/16 10:32 98.9 75 129/71 (90) 96 11/26/16 06:54 21 11/25/16 20:30 Room Air 11/25/16 20:06 2 Radiology Last 48 hours Impressions Abdomen/Pelvis CT 11/25/16 0800 Signed Impressions: Service Date/Time: November 08:58 - CONCLUSION: Peritoneal catheter was scattered amounts of free fluid. No obvious palpitation. One area of small bowel does appear to be slightly more loculated possibly related to an adhesion but there is no evidence of acute obstruction or acute pathology. Elmer Stearns MD A/P Assessment and Plan s/p exp lap small bowel resection. doing well dc home Glenroy Liu MD Nov 27, 2016 11:13
--- NOTE | 2016-11-28 07:20 | MP ---
cc: LUKAS BOYLE M.D. DATE OF SURGERY: November 25, 2016 PREOPERATIVE DIAGNOSIS Abdominal pain CATHEAD OPERATOR shunt Abnormal CT. POSTOPERATIVE DIAGNOSIS Abdominal pain CATHEAD OPERATOR shunt Abnormal CT. Adhesions. Matted loops of ileum. PROCEDURE: Diagnostic laparoscopy, adhesiolysis, exploratory laparotomy, small bowel resection with ileocecal anastomosis. SURGEON Dr. Lukas Boyle ANESTHESIA General endotracheal anesthesia INDICATIONS This is a very pleasant 40-year-old gentleman with history of hydrocephalus, CATHEAD OPERATOR shunt, multiple CATHEAD OPERATOR shunt revisions, and history of laparoscopic appendectomy who presents with a several week history of chronic intermittent abdominal pain, nausea with emesis. It has become so severe he came to the ER. He was seen in the emergency department recently at [facility] and treated with antibiotics for presumed kidney infection. He did not get any better. CT scanning showed an abnormal area of small bowel. INTRAOPERATIVE FINDINGS: Adhesion of omentum to the intraperitoneal umbilicus, extraperitoneal cecum and sigmoid colon. Matted loops of distal ileum resected and sent to pathology. Ileocecal anastomosis performed. ESTIMATED BLOOD LOSS: 100 mL DESCRIPTION OF PROCEDURE IN DETAIL The patient identified as Renzo Casas, taken to the operating room and placed in supine position. Sequential compression devices were placed on bilateral lower extremities. Following induction of adequate general endotracheal anesthesia, the patient's abdomen was prepped and draped in the usual sterile fashion with Betadine. A time-out procedure was performed. Following completion of time-out procedure to everyone's satisfaction within the room local anesthetic was placed in the right subcostal position. A 1/2 cm incision was made with a scalpel. Dissection continued posteriorly through subcutaneous fat. Anterior fascia and muscle were spread until the peritoneum was identified. A small incision was made in the peritoneum with the scalpel and the 5-mm balloon-tip trocar was placed in the peritoneal cavity, it's balloon inflated with CO2 insufflation to level of 15 mmHg ensued. Laparoscope was placed in the peritoneal cavity and then a single 5 millimeter trocar was placed in the right lateral abdomen under direct laparoscopic view after incision of the skin with a scalpel. Omental adhesions were identified to the umbilicus. These were taken down with combination of blunt dissection, scissor and electrocautery on small bleeding points. An additional 5 mm trocar was placed through a previous scar in the supraumbilical position into the peritoneal cavity under direct laparoscopic view after incision of the skin with scalpel and infiltration local anesthetic. The survey of the intra-abdominal contents demonstrated an abnormal anatomy. Distal loops of ileum were matted together in the midline upper pelvis. The intraperitoneal rectum was identified but the sigmoid colon was covered in peritoneum and was extraperitoneal location. The cecum was very similar to this as well, and the terminal ileum beyond these matted loops of distal ileum was adherent to the pelvis. This was mobilized using scissors carefully. It was determined in order to resect this area of matted loops of distal ileum, which is the only abnormality that could explain the patient's symptoms, a formal laparotomy incision would be required. Proposed infraumbilical incision was made with a scalpel. Hemostasis controlled with cautery. Dissection continued posteriorly through subcutaneous fatty tissue in the midline fascia until the peritoneum was entered and the pneumoperitoneum was relieved. Previously placed trocars were removed. Attention was turned first to mobilizing the cecum from its peritoneal location which allowed for complete mobilization of the terminal ileum. The site proximal and distal to the matted loops of ielum was identified. A small mesenteric window was made in the bowel, divided with the linear cutting stapling device. The harmonic scalpel wave was used to divide the mesentery and this did so effectively hemostatically. The terminal ileum left behind was too short to provide an anastomosis. It was mobilized. The mesentery divided with the harmonic wave and the final small piece of terminal ileum resected with the linear cutting stapling device. A functional end-to-end, [id number] small bowel to cecal anastomosis was the performed using the linear cutting stapling device and 3-0 silk sutures. 3-0 silk was used to reinforce the proximal and distal staple line and to imbricate part of the anastomosis. The mesenteric defect was closed with interrupted 3-0 silk, [id number] sutures. The right lower quadrant was irrigated copiously with saline. It is important to know laparoscopically, the CATHEAD OPERATOR shunt was identified and appeared uncomplicated. It was left separate from this bowel resection and anastomosis. Gloves were changed. The Kalpesh wound retractor system which had been placed was then removed. The infraumbilical midline fascia was closed with running #1 single stranded PDS suture. Subcutaneous layer was irrigated with saline approximated with interrupted 2-0 Vicryl sutures. Skin incisions were approximated, 4-0 Monocryl subcuticular sutures. Due to a possibility of an allergy to adhesives Dermabond was placed over the incisions and a dry sterile dressing was placed over the infraumbilical midline incision. The patient tolerated the procedure without apparent complication. Sponge, needle and instrument counts were correct at the case. MD PABLO Gross/REENA /7:58 PM /6:34 AM
== END 2016-11-27 13:00 | disposition home or self-care (01) ==
LOC: NEPE 07:44 → NEDA 11:28 → NEPHCDU 15:57
PROVIDERS: ADMIT Internal Medicine; ATTEND Internal Medicine
DX: K66.0 Peritoneal adhesions (postprocedural) (postinfection) (principal); G91.9 Hydrocephalus, unspecified; G43.909 Migraine, unspecified, not intractable, without status migrainosus; Z72.0 Tobacco use
CPT/HCPCS: 00790; 44120; 74177; 80048; 80053; 81001; 83690; 85025; 88305; 88307; 94150; 96361; 96365; 96366; 96367; 96372; 96375; 96376; 99285; G0378; J0131; J0500; J0690; J1885; J2370; J2405; J2710; J3010; J7030; J7120; Q9967

== ENCOUNTER 2017-04-18 09:43 | Emergency (ER) | payer OTHER ==
[~2017-04-18] VITALS: Ht 177.8 cm; Wt 82.0 kg
[2017-04-18 09:45] VITALS: BP 140/89; PULSE 80; RESP 18; TEMP 97.8; O2SAT 100
--- NOTE | 2017-04-18 10:40 | PD ---
HPI Chief Complaint: Headache Time Seen by Provider: 10:33 Travel History International Travel<30 days: No Contact w/Intl Traveler<30days: No Traveled to known affect area: No History of Present Illness HPI Patient states that he has had a shunt placed to address enlarged ventricles. Last surgery was done in [place] about 10 years ago however the last 12-15 revisions per patient had been done by Dr. Rosales. Patient returns complaining of a headache gradually ongoing over the last 2 days, generalized, 7 out of 10, associated with right-sided numbness or tingling particularly of his right lower extremity. No aggravating or alleviating factors. No associated factors such as fever cough NECK PAIN Chest pain abdominal pain back pain nausea vomiting diarrhea PFSH Past Medical History Diminished Hearing: No Neurologic: Yes Tetanus Vaccination: < 5 Years Influenza Vaccination: Yes Past Surgical History Abdominal Surgery: Yes (colon sx ) Appendectomy: Yes Neurologic Surgery: Yes (shunt) Social History Alcohol Use: Yes (rarely) Tobacco Use: Yes (rarely) Substance Use: No Allergies-Medications (Allergen,Severity, Reaction): Coded Allergies: No Known Allergies (Verified Allergy, Unknown, 04/18/17) Reported Meds & Prescriptions Reported Meds & Active Scripts Active No Active Prescriptions or Reported Medications Review of Systems General / Constitutional: No: Fever Eyes: No: Visual changes HENT: Positive: Headaches Cardiovascular: No: Chest Pain or Discomfort Respiratory: No: Shortness of Breath Gastrointestinal: No: Abdominal Pain Genitourinary: No: Dysuria Musculoskeletal: No: Pain Skin: No Rash Neurologic: Positive: Paresthesia (TO RIGHT SIDED LEG) Psychiatric: No: Depression Endocrine: No: Polydipsia Hematologic/Lymphatic: No: Easy Bruising Physical Exam Narrative GENERAL: SKIN: Warm and dry. HEAD: Atraumatic. Normocephalic. EYES: Pupils equal and round. No scleral icterus. No injection or drainage. ENT: No nasal bleeding or discharge. Mucous membranes pink and moist. NECK: Trachea midline. No JVD. CARDIOVASCULAR: Regular rate and rhythm. RESPIRATORY: No accessory muscle use. Clear to auscultation. Breath sounds equal bilaterally. GASTROINTESTINAL: Abdomen soft, non-tender, nondistended. MUSCULOSKELETAL: Extremities without clubbing, cyanosis, or edema. No obvious deformities. NEUROLOGICAL: Awake and alert. No obvious cranial nerve deficits. Motor grossly within normal limits. Five out of 5 muscle strength in the arms and legs. Normal speech. PSYCHIATRIC: Appropriate mood and affect; insight and judgment normal. Data Data Last Documented VS Vital Signs Date Time Temp Pulse Resp B/P (MAP) Pulse Ox O2 Delivery O2 Flow Rate FiO2 04/18/17 15:04 97.8 61 16 119/70 (86) 100 Room Air Orders Orders Shunt Series (04/18/17 ) Complete Blood Count With Diff (04/18/17 10:33) Basic Metabolic Panel (Bmp) (04/18/17 10:33) Prothrombin Time / Inr (Pt) (04/18/17 10:33) Act Partial Throm Time (Ptt) (04/18/17 10:33) Ct Brain W/O Iv Contrast(Rout) (04/18/17 10:33) Ondansetron Inj (Zofran Inj) (04/18/17 12:00) Shuntogram (04/18/17 ) Ondansetron Inj (Zofran Inj) (04/18/17 13:30) Morphine Inj (Morphine Inj) (04/18/17 13:30) Iohexol 300 Inj (Omnipaque 300 Inj) (04/18/17 14:30) Labs Laboratory Tests Test 04/18/17 10:40 White Blood Count 4.4 TH/MM3 Red Blood Count 5.11 MIL/MM3 Hemoglobin 14.9 GM/DL Hematocrit 43.2 % Mean Corpuscular Volume 84.6 FL Mean Corpuscular Hemoglobin 29.2 PG Mean Corpuscular Hemoglobin Concent 34.5 % Red Cell Distribution Width 14.9 % Platelet Count 156 TH/MM3 Mean Platelet Volume 9.3 FL Neutrophils (%) (Auto) 59.4 % Lymphocytes (%) (Auto) 30.1 % Monocytes (%) (Auto) 7.5 % Eosinophils (%) (Auto) 2.2 % Basophils (%) (Auto) 0.8 % Neutrophils # (Auto) 2.6 TH/MM3 Lymphocytes # (Auto) 1.3 TH/MM3 Monocytes # (Auto) 0.3 TH/MM3 Eosinophils # (Auto) 0.1 TH/MM3 Basophils # (Auto) 0.0 TH/MM3 CBC Comment DIFF FINAL Differential Comment Prothrombin Time 10.1 SEC Prothromb Time International Ratio 1.0 RATIO Activated Partial Thromboplast Time 25.7 SEC Blood Urea Nitrogen 19 MG/DL Creatinine 1.01 MG/DL Random Glucose 89 MG/DL Calcium Level 8.8 MG/DL Sodium Level 139 MEQ/L Potassium Level 3.8 MEQ/L Chloride Level 106 MEQ/L Carbon Dioxide Level 27.3 MEQ/L Anion Gap 6 MEQ/L Estimat Glomerular Filtration Rate 81 ML/MIN MDM Medical Decision Making Medical Screen Exam Complete: Yes Emergency Medical Condition: Yes Medical Record Reviewed: Yes Differential Diagnosis ICH V SHUNT DISCONNECT V SHUNT DYSFUNCTION V ELECTROLYTE ABNL V TIA V CVA Narrative Course Currently the patient CBC does not show any leukocytosis, thrombocytosis, thrombocytopenia, or any anemia. Basic metabolic profile shows normal renal functions as well as normal electrolytes. Coagulation factors are within normal limits. Currently at [address] head results as well as shunt series results. Physician Communication Physician Communication After approximately 45 minutes of waiting for Dr. Rosales to return phone call finally was able to discuss the care of this patient which included Dr. Rosales recommendation a repeat shuntogram and if normal patient is stable for discharge however if abnormal then to please call them back as he may need to revise again Diagnosis Primary Impression: HEADACHE Admitting Information Admitting Physician Requests: Observation Patient Instructions: Acute Headache (ED), General Instructions Scripts Hydrocodone-Acetaminophen ([place]) 5 Mg-325 Mg Tab 1 TAB PO Q4H Y for PAIN, #12 TAB 0 Refills Prov: Vasiliy Schroeder MD 04/18/17 Disposition: 01 DISCHARGE HOME Condition: Stable Vasiliy Schroeder MD Apr 18, 2017 10:40
[2017-04-18 10:57] LABS: AUTOMATED NEUTROPHIL # 2.6 TH/MM3 (1.8-7.7); BASOPHIL % 0.8 % (0.0-2.0); EOSINOPHIL # 0.1 TH/MM3 (0-0.4); EOSINOPHIL % 2.2 % (0.0-4.0); HEMATOCRIT 43.2 % (39.0-51.0); HEMOGLOBIN 14.9 GM/DL (13.0-17.0); LYMPH % 30.1 % (9.0-44.0); LYMPHOCYTE # 1.3 TH/MM3 (1.0-4.8); MEAN CELL VOLUME 84.6 FL (80.0-100.0); MEAN CORPUSCULAR HEMOGLOBIN 29.2 PG (27.0-34.0); MEAN CORPUSCULAR HGB CONC 34.5 % (32.0-36.0); MEAN PLATELET VOLUME 9.3 FL (7.0-11.0); MONO % 7.5 % (0.0-8.0); MONOCYTE # 0.3 TH/MM3 (0-0.9); NEUT % 59.4 % (16.0-70.0); PLATELET COUNT 156 TH/MM3 (150-450); RED BLOOD COUNT 5.11 MIL/MM3 (4.50-5.90); RED CELL DISTRIBUTION WIDTH 14.9 % (11.6-17.2); WHITE BLOOD COUNT 4.4 TH/MM3 (4.0-11.0)
[2017-04-18 11:04] LABS: PROTHROMBIN TIME - PATIENT 10.1 SEC (9.8-11.6)
[2017-04-18 11:16] LABS: BICARBONATE 27.3 MEQ/L (21.0-32.0); CALCIUM 8.8 MG/DL (8.5-10.1); CREATININE 1.01 MG/DL (0.60-1.30)
--- NOTE | 2017-04-18 11:36 | RADRPT ---
EXAM DATE/TIME: 04/18/2017 10:49 [facility] COMPARISON: No previous studies available for comparison. INDICATIONS : Headache for 3 days. nausea, leg numbness, and blurred vision today. MEDICAL HISTORY : None. SURGICAL HISTORY : Shunt revision. ENCOUNTER: Initial ACUITY: 3 days PAIN SCORE: 3/10 LOCATION: Bilateral cranial FINDINGS: Radiograph of the skull, neck, chest and abdomen performed to evaluate shunt patency. Shunt catheter appears patent with the tip in the right mid abdomen. No catheter disruption is identified. The visualized heart, lungs and abdominal structures are intact. CONCLUSION: Intact shunt. Sudheer Escalante MD FACR on April 18, 2017 at 11:32 Board Certified Radiologist. This report was verified electronically.
--- NOTE | 2017-04-18 11:43 | RADRPT ---
EXAM DATE/TIME: 04/18/2017 11:32 [facility] COMPARISON: No previous studies available for comparison. INDICATIONS : Cephalgia for four days. RADIATION DOSE: 56.35 CTDIvol (mGy) MEDICAL HISTORY : None SURGICAL HISTORY : shunt placement ENCOUNTER: Initial ACUITY: 4 - 6 days PAIN SCALE: 7/10 LOCATION: Bilateral head TECHNIQUE: Multiple contiguous axial images were obtained of the head. Using automated exposure control and adj ustment of the mA and/or kV according to patient size, radiation dose was kept as low as reasonably a chievable to obtain optimal diagnostic quality images. DICOM format image data is available electro nically for review and comparison. FINDINGS: I have no prior studies for comparison. Shunt is entering from the left shoulder region. Ventricles are mildly prominent. Without comparison films are not sure this is pathological. There is no parenchymal hemorrhage. No extra-axial fluid collections appreciated. Posterior fossa i s unremarkable. CONCLUSION: Shunt entering from the left total region. Mildly prominent ventricles. Sudheer Escalante MD FACR on April 18, 2017 at 11:40 Board Certified Radiologist. This report was verified electronically.
[2017-04-18 11:46] VITALS: BP 110/68; PULSE 64; RESP 16; TEMP 97.8; O2SAT 100
[2017-04-18] MEDS ORDERED: ONDANSETRON HCL 4 MG/2 ML VIAL IVP ONE (12:00)
[2017-04-18 13:16] VITALS: BP 120/80; PULSE 60; RESP 15; TEMP 97.8; O2SAT 100
[2017-04-18] MEDS ORDERED: MORPHINE SULFATE 4 MG/ML INJ IV PUSH ONE (13:30)
[2017-04-18] MEDS ORDERED: ONDANSETRON HCL 4 MG/2 ML VIAL IV PUSH ONE (13:30)
[2017-04-18] MEDS ORDERED: IOHEXOL 300 MG/ML 50 ML BTL (for RAD DIAG) OTHER ONE (14:30)
--- NOTE | 2017-04-18 15:00 | RADRPT ---
EXAM DATE/TIME: 04/18/2017 15:45 [facility] COMPARISON: No previous studies available for comparison. INDICATIONS : Patient with a history of enlarged ventricles, headaches. MEDICAL HISTORY : Neurological SURGICAL HISTORY : Shunt Colon surgery ENCOUNTER: Initial ACUITY: 2 days PAIN SCORE: 7/10 LOCATION: Headache FLUORO TIME: 1.13 minutes IMAGE SERIES: 1 CONTRAST: 1 cc Omnipaque (iohexol) 300 PROCEDURE : 1. Fluoroscopically guided shuntogram. The risks, benefits and alternatives to the procedure were explained and verbal and written consent w as obtained. The site was prepped in sterile fashion. Full sterile technique was used, including ca p, mask, sterile gloves and gown and a large sterile sheet. Hand hygiene and 2% chlorhexidine and/or betadine/alcohol prep was utilized per protocol for cutaneous antisepsis. The skin and subcutaneous tissues were infiltrated with local anesthetic solution. With fluoroscopic guidance the previously placed shunt was injected with a 23 gauge butterfly needle and positive contrast was injected. Both the ventricular and peritoneal limbs of the shunt are patent with contrast seen. No catheter dis ruption is identified. CONCLUSION: 1. Intact shunt Quang Prado MD on April 18, 2017 at 14:57 Board Certified Radiologist. This report was verified electronically.
[2017-04-18 15:04] VITALS: BP 119/70; PULSE 61; RESP 16; TEMP 97.8; O2SAT 100
[2017-04-18] MEDS ORDERED: NORC5TAB PO (15:08)
[2017-04-18 15:15] VITALS: BP 130/77; TEMP 97.8
[2017-04-18] MEDS ORDERED: ZOFR4TAB3 SL (15:18)
== END 2017-04-18 15:15 | disposition home or self-care (01) ==
LOC: MERGE 09:43 → NEPC 09:43
DX: R51 Headache (principal); Z98.2 Presence of cerebrospinal fluid drainage device
CPT/HCPCS: 61070; 70250; 70450; 71045; 72040; 74018; 75809; 80048; 85025; 85610; 85730; 96374; 96375; 96376; 99285; J2270; J2405; Q9967

== ENCOUNTER 2017-07-02 17:47 | Emergency (ER) | payer OTHER ==
[~2017-07-02] VITALS: Ht 177.8 cm; Wt 80.0 kg
[~2017-07-02 17:47] MED LIST changes: -HYDR-3516 PO; +NORC5TAB PO; +ZOFR4TAB3 SL
[2017-07-02 17:53] VITALS: BP 125/74; PULSE 73; RESP 17; TEMP 97.5; O2SAT 99
[2017-07-02 18:03] VITALS: BP 138/90; PULSE 60; RESP 16; TEMP 98.1; O2SAT 100
[2017-07-02] MEDS ORDERED: diphenhydrAMINE HCL 50 MG/ML VIAL IV PUSH ONE (18:30)
[2017-07-02] MEDS ORDERED: MORPHINE SULFATE 4 MG/ML INJ IV PUSH ONE (18:30)
[2017-07-02] MEDS ORDERED: ONDANSETRON HCL 4 MG/2 ML VIAL IV PUSH ONE (18:30)
--- NOTE | 2017-07-02 18:36 | PD ---
HPI Chief Complaint: Abdominal Pain Time Seen by Provider: 18:14 Travel History International Travel<30 days: No Contact w/Intl Traveler<30days: No Traveled to known affect area: No History of Present Illness HPI 41yo M presents to the ED with c/o right sided abdominal pain for a few days but worst today. Said it is constantly located in right mid abdomen and feels like the pain he had last time he had small bowel resection. +Nausea, vomiting. Denies any fever, chest pain, sob, dysuria, hematuria, diarrhea, focal weakness or numbness. Pt had diagnostic laparoscopy by Dr. Stratton and intraoperative findings included adhesion of omentum to intraperitoneal umbilicus, extraperitoneal cecum and sigmoid colon, matted loops of distal ileum resected and ileocecal anastomosis performed. PFSH Past Medical History Arthritis: No Asthma: No Autoimmune Disease: No Blood Disorders: No Anxiety: No Depression: No Heart Rhythm Problems: No Cancer: No Cardiovascular Problems: No High Cholesterol: No Chemotherapy: No Chest Pain: No Congestive Heart Failure: No COPD: No Cerebrovascular Accident: No Diabetes: No Diminished Hearing: No Endocrine: No Gastrointestinal Disorders: Yes GERD: No Glaucoma: No Genitourinary: No Headaches: Yes Hepatitis: No Hiatal Hernia: No Immune Disorder: No Musculoskeletal: Yes (right foot broken 2017) Neurologic: Yes Psychiatric: No Reproductive: No Respiratory: No Radiation Therapy: No Seizures: No Sleep Apnea: No Thyroid Disease: No Ulcer: Yes Tetanus Vaccination: > 5 Years Past Surgical History Abdominal Surgery: Yes (colon sx ) AICD: No Appendectomy: Yes Body Medical Devices: [employer] Cardiac Surgery: No Ear Surgery: No Endocrine Surgery: No Eye Surgery: No Genitourinary Surgery: No Gynecologic Surgery: No Neurologic Surgery: Yes (shunt) Oral Surgery: No Pacemaker: No Thoracic Surgery: No Other Surgery: Yes ([employer] SHUNTX 20) Social History Alcohol Use: Yes (rarely) Tobacco Use: Yes (rarely) Substance Use: No Allergies-Medications (Allergen,Severity, Reaction): Coded Allergies: hydromorphone (Unverified Adverse Reaction, Intermediate, Chest Pain, 07/02) adhesive (Unverified Adverse Reaction, Mild, RED WHELPS, 07/02/17) Reported Meds & Prescriptions Reported Meds & Active Scripts Active Mobic (Meloxicam) 15 Mg Tab 15 Mg PO DAILY Ultram (Tramadol HCl) 50 Mg Tab 50 Mg PO Q6H PRN Review of Systems Except as stated in HPI: all other systems reviewed are Neg Physical Exam Narrative GENERAL: 41yo M in moderate distress. SKIN: Focused skin assessment warm/dry. HEAD: Atraumatic. Normocephalic. EYES: Pupils equal and round. No scleral icterus. No injection or drainage. ENT: No nasal bleeding or discharge. Mucous membranes pink and moist. NECK: Trachea midline. No JVD. CARDIOVASCULAR: Regular rate and rhythm. No murmur appreciated. RESPIRATORY: No accessory muscle use. Clear to auscultation. Breath sounds equal bilaterally. GASTROINTESTINAL: Abdomen soft, +TTP right lower abdomen, right periumbilical abdomen. No rebound tenderness or guarding. MUSCULOSKELETAL: No obvious deformities. No clubbing. No cyanosis. No edema. NEUROLOGICAL: Awake and alert. No obvious cranial nerve deficits. Motor grossly within normal limits. Normal speech. PSYCHIATRIC: Appropriate mood and affect; insight and judgment normal. Data Data Last Documented VS Vital Signs Date Time Temp Pulse Resp B/P (MAP) Pulse Ox O2 Delivery O2 Flow Rate FiO2 07/02/17 20:33 07/02/17 19:31 57 18 98 Room Air 07/02/17 18:03 98.1 Orders Orders Complete Blood Count With Diff (07/02/17 18:21) Comprehensive Metabolic Panel (07/02/17 18:21) Lipase (07/02/17 18:21) Prothrombin Time / Inr (Pt) (07/02/17 18:21) Act Partial Throm Time (Ptt) (07/02/17 18:21) Ct Abd/Pel W Iv Contrast(Rout) (07/02/17 18:21) Ondansetron Inj (Zofran Inj) (07/02/17 18:30) Morphine Inj (Morphine Inj) (07/02/17 18:30) Diphenhydramine Inj (Benadryl Inj) (07/02/17 18:30) Iohexol 350 Inj (Omnipaque 350 Inj) (07/02/17 18:52) Ed Discharge Order (07/02/17 20:26) Labs Laboratory Tests Test 07/02/17 18:25 White Blood Count 6.2 TH/MM3 Red Blood Count 4.73 MIL/MM3 Hemoglobin 14.5 GM/DL Hematocrit 41.4 % Mean Corpuscular Volume 87.5 FL Mean Corpuscular Hemoglobin 30.7 PG Mean Corpuscular Hemoglobin Concent 35.1 % Red Cell Distribution Width 13.6 % Platelet Count 169 TH/MM3 Mean Platelet Volume 10.2 FL Neutrophils (%) (Auto) 61.2 % Lymphocytes (%) (Auto) 28.9 % Monocytes (%) (Auto) 7.4 % Eosinophils (%) (Auto) 2.0 % Basophils (%) (Auto) 0.5 % Neutrophils # (Auto) 3.8 TH/MM3 Lymphocytes # (Auto) 1.8 TH/MM3 Monocytes # (Auto) 0.5 TH/MM3 Eosinophils # (Auto) 0.1 TH/MM3 Basophils # (Auto) 0.0 TH/MM3 CBC Comment DIFF FINAL Differential Comment Prothrombin Time 10.2 SEC Prothromb Time International Ratio 1.0 RATIO Activated Partial Thromboplast Time 25.7 SEC Blood Urea Nitrogen 19 MG/DL Creatinine 1.10 MG/DL Random Glucose 84 MG/DL Total Protein 7.1 GM/DL Albumin 4.1 GM/DL Calcium Level 9.0 MG/DL Alkaline Phosphatase 100 U/L Aspartate Amino Transf (AST/SGOT) 18 U/L Alanine Aminotransferase (ALT/SGPT) 26 U/L Total Bilirubin 0.9 MG/DL Sodium Level 141 MEQ/L Potassium Level 3.5 MEQ/L Chloride Level 106 MEQ/L Carbon Dioxide Level 26.8 MEQ/L Anion Gap 8 MEQ/L Estimat Glomerular Filtration Rate 73 ML/MIN Lipase 113 U/L [facility] Medical Decision Making Medical Screen Exam Complete: Yes Emergency Medical Condition: Yes Differential Diagnosis Obstruction vs. colitis vs. cystitis Narrative Course 41yo M with abdominal pain and vomiting. Pt seen at the end of my shift and sign out to next team to follow up labs, UA, and CT a/p and reevaluate. Diagnosis Primary Impression: Abdominal pain Qualified Codes: R10.9 - Unspecified abdominal pain Scripts Meloxicam (Mobic) 15 Mg Tab 15 MG PO DAILY for Pain, #20 TAB 0 Refills Prov: Adán Hoffmann MD 07/02/17 Tramadol (Ultram) 50 Mg Tab 50 MG PO Q6H Y for PAIN, #20 TAB 0 Refills Prov: Adán Hoffmann MD 07/02/17 Karen Castrejon DO Jul 02, 2017 18:36
[2017-07-02] MEDS ORDERED: IOHEXOL 350 MG/ML 10 ML VIAL (for RAD DIAG) IVCONTRAST ONE (18:52)
[2017-07-02 19:17] LABS: AUTOMATED NEUTROPHIL # 3.8 TH/MM3 (1.8-7.7); BASOPHIL % 0.5 % (0.0-2.0); EOSINOPHIL # 0.1 TH/MM3 (0-0.4); HEMATOCRIT 41.4 % (39.0-51.0); HEMOGLOBIN 14.5 GM/DL (13.0-17.0); LYMPH % 28.9 % (9.0-44.0); LYMPHOCYTE # 1.8 TH/MM3 (1.0-4.8); MEAN CELL VOLUME 87.5 FL (80.0-100.0); MEAN CORPUSCULAR HEMOGLOBIN 30.7 PG (27.0-34.0); MEAN CORPUSCULAR HGB CONC 35.1 % (32.0-36.0); MEAN PLATELET VOLUME 10.2 FL (7.0-11.0); MONO % 7.4 % (0.0-8.0); MONOCYTE # 0.5 TH/MM3 (0-0.9); NEUT % 61.2 % (16.0-70.0); PLATELET COUNT 169 TH/MM3 (150-450); RED BLOOD COUNT 4.73 MIL/MM3 (4.50-5.90); RED CELL DISTRIBUTION WIDTH 13.6 % (11.6-17.2); WHITE BLOOD COUNT 6.2 TH/MM3 (4.0-11.0)
[2017-07-02 19:29] LABS: PROTHROMBIN TIME - PATIENT 10.2 SEC (9.8-11.6)
[2017-07-02 19:31] VITALS: BP 144/97; PULSE 57; RESP 18; O2SAT 98
--- NOTE | 2017-07-02 19:52 | RADRPT ---
EXAM DATE/TIME: 07/02/2017 18:51 [place] COMPARISON: No previous studies available for comparison. INDICATIONS : Abdomen pain with nausea and vomiting IV CONTRAST: 95 cc Omnipaque 350 (iohexol) IV ORAL CONTRAST: No oral contrast ingested. RADIATION DOSE: 7.05 CTDIvol (mGy) MEDICAL HISTORY : None SURGICAL HISTORY : Appendectomy. 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 58-year-old 10 LOCATION: abdomen TECHNIQUE: Volumetric scanning of the abdomen and pelvis was performed. Using automated exposure control and ad justment of the mA and/or kV according to patient size, radiation dose was kept as low as reasonably achievable to obtain optimal diagnostic quality images. DICOM format image data is available electro nically for review and comparison. FINDINGS: Ventriculoperitoneal shunt ends in the pelvis. Lung bases are clear. There is also a disconnected spi nal stimulator wire extending into the lower thoracic canal. Lung bases are clear or no acute finding the liver, spleen, adrenals, kidneys or pancreas. No calcifi ed gallstones or biliary ductal dilatation. No free fluid. No bowel obstruction. No adenopathy. No acute bony abnormalities. There is some fluid in the left lower inguinal canal. CONCLUSION: 1. No acute findings within the abdomen and pelvis. Previous appendectomy and partial colon resection . 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 Rey Bunn MD on July 02, 2017 at 19:43 Board Certified Radiologist. This report was verified electronically.
[2017-07-02 19:53] LABS: ALBUMIN 4.1 GM/DL (3.4-5.0); AST (GOT) 18 U/L (15-37); BICARBONATE 26.8 MEQ/L (21.0-32.0); BLOOD UREA NITROGEN 19 MG/DL (7-18); CHLORIDE 106 MEQ/L (98-107); GLOMERULAR FILTRATION RATE 73 ML/MIN (>89); GLUCOSE,RANDOM 84 MG/DL (74-106); SODIUM (NA) 141 MEQ/L (136-145)
[2017-07-02 19:57] LABS: ALKALINE PHOSPHATASE 100 U/L (45-117); ALT (GPT) 26 U/L (12-78); TOTAL BILIRUBIN ADULT 0.9 MG/DL (0.2-1.0); TOTAL PROTEIN 7.1 GM/DL (6.4-8.2)
--- NOTE | 2017-07-02 20:17 | PD ---
Physical Exam Narrative Patient was seen by ED physician and signed out to me. Data Data Last Documented VS Vital Signs Date Time Temp Pulse Resp B/P (MAP) Pulse Ox O2 Delivery O2 Flow Rate FiO2 07/02/17 19:31 57 18 144/97 (113) 98 Room Air 07/02/17 18:03 98.1 Orders Orders Complete Blood Count With Diff (07/02/17 18:21) Comprehensive Metabolic Panel (07/02/17 18:21) Lipase (07/02/17 18:21) Prothrombin Time / Inr (Pt) (07/02/17 18:21) Act Partial Throm Time (Ptt) (07/02/17 18:21) Urinalysis - C+S If Indicated (07/02/17 18:21) Ct Abd/Pel W Iv Contrast(Rout) (07/02/17 18:21) Ondansetron Inj (Zofran Inj) (07/02/17 18:30) Morphine Inj (Morphine Inj) (07/02/17 18:30) Diphenhydramine Inj (Benadryl Inj) (07/02/17 18:30) Iohexol 350 Inj (Omnipaque 350 Inj) (07/02/17 18:52) Labs Laboratory Tests Test 07/02/17 18:25 White Blood Count 6.2 TH/MM3 Red Blood Count 4.73 MIL/MM3 Hemoglobin 14.5 GM/DL Hematocrit 41.4 % Mean Corpuscular Volume 87.5 FL Mean Corpuscular Hemoglobin 30.7 PG Mean Corpuscular Hemoglobin Concent 35.1 % Red Cell Distribution Width 13.6 % Platelet Count 169 TH/MM3 Mean Platelet Volume 10.2 FL Neutrophils (%) (Auto) 61.2 % Lymphocytes (%) (Auto) 28.9 % Monocytes (%) (Auto) 7.4 % Eosinophils (%) (Auto) 2.0 % Basophils (%) (Auto) 0.5 % Neutrophils # (Auto) 3.8 TH/MM3 Lymphocytes # (Auto) 1.8 TH/MM3 Monocytes # (Auto) 0.5 TH/MM3 Eosinophils # (Auto) 0.1 TH/MM3 Basophils # (Auto) 0.0 TH/MM3 CBC Comment DIFF FINAL Differential Comment Prothrombin Time 10.2 SEC Prothromb Time International Ratio 1.0 RATIO Activated Partial Thromboplast Time 25.7 SEC Blood Urea Nitrogen 19 MG/DL Creatinine 1.10 MG/DL Random Glucose 84 MG/DL Total Protein 7.1 GM/DL Albumin 4.1 GM/DL Calcium Level 9.0 MG/DL Alkaline Phosphatase 100 U/L Aspartate Amino Transf (AST/SGOT) 18 U/L Alanine Aminotransferase (ALT/SGPT) 26 U/L Total Bilirubin 0.9 MG/DL Sodium Level 141 MEQ/L Potassium Level 3.5 MEQ/L Chloride Level 106 MEQ/L Carbon Dioxide Level 26.8 MEQ/L Anion Gap 8 MEQ/L Estimat Glomerular Filtration Rate 73 ML/MIN Lipase 113 U/L [facility] Supervised Visit with JORDYN: No Interpretation(s) Last Impressions Abdomen/Pelvis CT 07/02/17 1821 Signed Impressions: Service Date/Time: Sunday, July 02, 2017 18:51 - CONCLUSION: 1. No acute findings within the abdomen and pelvis. Previous appendectomy and partial colon resection. 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 Rey Bunn MD 2015 p.m. CBC within normal limits. CMP within normal limits. Diagnosis Primary Impression: Abdominal pain Qualified Codes: R10.9 - Unspecified abdominal pain Patient Instructions: General Instructions Additional Instruction: Take medication as directed for pain. Follow-up with personal physician and surgeon. Return if persistent problem or worse. Med/Other Pt SpecificInfo: Prescription(s) given Scripts Meloxicam (Mobic) 15 Mg Tab 15 MG PO DAILY for Pain, #20 TAB 0 Refills Prov: Adán Hoffmann MD 07/02/17 Tramadol (Ultram) 50 Mg Tab 50 MG PO Q6H Y for PAIN, #20 TAB 0 Refills Prov: Adán Hoffmann MD 07/02/17 Disposition: 01 DISCHARGE HOME Condition: Stable Adán Hoffmann MD Jul 02, 2017 20:17
[2017-07-02] MEDS ORDERED: TRAM50 PO (20:26)
[2017-07-02] MEDS ORDERED: MOBI15TA PO (20:26)
== END 2017-07-02 20:41 | disposition home or self-care (01) ==
LOC: NEPC 17:47
DX: R10.9 Unspecified abdominal pain (principal); Z98.2 Presence of cerebrospinal fluid drainage device; Z88.5 Allergy status to narcotic agent
CPT/HCPCS: 74177; 80053; 83690; 85025; 85610; 85730; 96374; 96375; 99284; J1200; J2270; J2405; Q9967

== ENCOUNTER 2018-03-28 05:48 | Inpatient (IN) ==
--- NOTE | 2018-03-28 06:44 | ED ---
HPI General Chief complaint: Neuro Symptoms/Deficit Stated complaint: Medical Time Seen by Provider: 03/28/18 06:11 Source: patient and family Mode of arrival: ambulatory Limitations: no limitations History of Present Illness HPI narrative: The patient is a 42 year old male who presents to the [facility] emergency department with a history of being found by his on the floor with altered mentation. When she attempted to sit him up he seemed to be off balance. The patient's recent history is complicated by having a ANALYTICAL TECH shunt revision done on March 28. The patient was discharged from the hospital the next day. The patient had been doing well up until Tuesday evening when he was standing or movement he began to have nausea and vomiting. The patient on arrival is drowsy although awake. The patient reports feeling dizzy , off balance. The patient denies having any extremity weakness, or numbness or tingling. The patient does admit to having a headache. He denies having any patient is oriented to person, place, and time, however he is confused about the details of his recent medical history. The patient's mother drove him to the emergency department. She reports that he has had approximately 21 ANALYTICAL TECH shunt revisions since 2000 when he was diagnosed first with hydrocephalus. Otherwise on review of systems, the patient denies having any known recent fevers, cough, congestion, neck pain, chest pain, shortness of breath, abdominal pain, diarrhea, or urinary symptoms. Related Data Home Medications Medication Instructions Recorded Confirmed No Known Home Medications 03/21/18 03/28/18 Allergies Allergy/AdvReac Type Severity Reaction Status Date / Time hydromorphone AdvReac Intermediate Chest Pain Verified 03/28/18 05:53 adhesive AdvReac Mild RED WHELPS Verified 03/28/18 05:53 Review of Systems ROS: all other systems reviewed are negative [facility] Medical History Medical History Congenital hydrocephalus (Acute) Surgical History Surgical History H/O abdominal surgery (Acute) Hx of appendectomy (Acute) ANALYTICAL TECH (ventriculoperitoneal) shunt status (Acute) Social History Social History Substance History: No History of Abuse Second Hand Smoke Exposure: No Smoking Status: Never smoker Tobacco Type: Smokeless Tobacco How Often Do You Have a Drink Containing Alcohol: Never Recent Travel in [facility] within the Last 8 Weeks: No Recent Out of Country Travel within the Last 8 Weeks: No Immunization History Tetanus Immunization: Unsure Exam Const General: cooperative, no acute distress and well developed Nutritional Appearance: well nourished Orientation: awake, oriented x3 and other (Drowsy) HENMT Head: normocephalic and other (The patient has the left side of his head shaved and postoperative wound noted without any signs of infection. No drainage.) Nose: no nasal discharge and no epistaxis Mouth: moist mucous membranes Throat: posterior oropharynx normal and uvula midline Eyes Sclera: normal sclerae Pupils: PERRL EOM: EOM abnormal (Patient seems to have difficulty with upward gaze on extraocular motion testing) Neck Neck: no meningeal signs, trachea midline and no JVD Resp Effort & Inspection: no use of accessory muscles Auscultation: clear to auscultation bilaterally Cardio Rate: regular rate Rhythm: regular rhythm Heart Sounds: no murmurs GI Inspection: non-distended Palpation: soft, no hepatosplenomegaly, no guarding, not rigid and nontender Auscultation: normal bowel sounds Back/Spine/Pelvis Back: no CVA tenderness Skin General: dry skin (warm) Neuro General: awake, confused and other (Drowsy on exam.) Cranial Nerves: CN's II-XI intact bilaterally (Except the patient appears to have difficulty with upward gaze on extraocular motion testing.) Speech: speech normal Motor: strength 5/5 throughout and no movement abnormalities noted Sensory Exam: no sensory deficits noted Extrem General: normal to inspection, no calf tenderness, no clubbing, no cyanosis and no edema Psych Mood: congruent mood Affect: normal affect Judgment: judgment good Course Initial Documented Vital Signs Temperature 98 F 03/28/18 05:49 Pulse Rate 50 L 03/28/18 05:49 Respiratory Rate 16 03/28/18 05:49 Blood Pressure 124/70 03/28/18 05:49 Pulse Oximetry 97 03/28/18 05:49 Last Documented Vital Signs Temperature 98 F 03/28/18 05:49 Pulse Rate 45 L 03/28/18 07:00 Respiratory Rate 16 03/28/18 07:00 Blood Pressure 127/60 03/28/18 07:00 Pulse Oximetry 99 03/28/18 07:00 Critical Care Time Critical Care Time: Yes Total Critical Care Time: 32 Attestation: Aggregate critical care time was 32 minutes. Time to perform other separately billable procedures was not included in the critical care time. My time did not include minutes spent treating any other patients simultaneously or on activities that did not directly contribute to the patient's treatment. The services I provided to this patient were to treat and/or prevent clinically significant deterioration that could result in: Respiratory failure, versus herniation, versus progression of neurologic disability I provided critical care services requiring my management, as noted below: Chart data review, documentation time, medication orders and management, vital sign assessments/reviewing monitor data, ordering and reviewing lab tests, ordering and interpreting/reviewing x-rays and diagnostic studies, care of the patient and discussion of the patient with the admitting physicians. NIH Stroke Scale NIH Stroke Scale Level of Consciousness: 1-Drowsy Orientation Questions: 0-Answers both correct Responds to Commands: 0-Both tasks correct Gaze Eye Movement: 0-Horizontal movement WNL Visual G[place]: 0-No visual field defect Facial Movement: 0-Normal Motor Functions Arm LEFT: 0-No drift Motor Functions Arm RIGHT: 0-No drift Motor Functions Leg LEFT: 0-No drift Motor Functions Leg RIGHT: 0-No drift Limb Ataxia: 0-No ataxia Sensory Loss: 0-No sensory loss Best Language: 0-Normal Articulation: 0-Normal Extinction or Inattention Sensory: 0-Absent Total: 1 Medical Decision Making MDM Narrative Medical decision making narrative: During the course of the patient's emergency department visit, the patient's history, examination, and differential diagnosis were reviewed with the patient. The patient was placed on a head of ethics and compliance with oximetry and frequent blood pressure monitoring. The patient had IV access obtained and blood work sent for analysis. A diagnostic evaluation was quickly started regarding the patient's altered mentation with recent ANALYTICAL TECH shunt revision. The patient was urgently taken to CT scan. The patient prior to going to CT scan had a blood sugar done that was 100. The patient's diagnostic studies are remarkable for a white blood cell count of 7, hemoglobin 15.5, platelets 202 with neutrophils 72.7, PT PTT within normal limits, the patient's chest x-ray showed no acute cardiopulmonary disease. CT scan of the brain showed progressive moderate to severe hydrocephalus with stable left ANALYTICAL TECH shunt catheter in place. Findings are consistent with catheter malfunction. CT scan of the cervical spine shows no acute fracture or subluxation. Approximately 6:40 AM I spoke to Dr. Rosales, the neurosurgeon that revise the patient's shunt this past week. He plans to take the patient urgently to the OR for shunt revision. He requested that consents be placed on the patient's chart. He requested that the patient be admitted to his service. He requested that the patient be held in the emergency department until he takes him to the OR later this morning. The patient's results were discussed with the patient and the patient's family, including the plan of care. I explained that further testing and/ or monitoring is indicated based on the patient's history, examination, and/ or laboratory findings. Therefore, I recommended admission for additional evaluation. The patient and the patient's family expressed understanding and were agreeable with this plan. The patient was admitted to the hospital in guarded condition and sent to a bed under the care of Dr. Rosales. Medical Screen Exam Complete: Yes Emergency Medical Condition: Yes Differential Diagnosis Differential Diagnosis: The patient malfunction, versus intracranial hemorrhage , versus postop infection Medical Records Medical records reviewed: Yes I reviewed the patient's medical records. Lab Data Lab results reviewed: Yes I reviewed the patient's lab results. Result diagrams: 03/28/18 06:26 03/28/18 06:26 Lab Results 03/28/18 Range/Units 06:26 WBC 7.0 (4.0-11.0) th/mm3 RBC 4.81 (4.50-5.90) mil/mm3 Hgb 15.5 (13.0-17.0) gm/dL Hct 43.6 (39.0-51.0) % MCV 90.5 (80.0-100.0) fL MCH 32.1 (27.0-34.0) pg MCHC 35.5 (32.0-36.0) % RDW 12.9 (11.6-17.2) % Plt Count 202 D (150-450) th/mm3 MPV 9.6 (7.0-11.0) fL Neut % (Auto) 72.7 H (16.0-70.0) % Lymph % (Auto) 18.1 (9.0-44.0) % Castro % (Auto) 7.9 (0.0-8.0) % Eos % (Auto) 0.6 (0.0-4.0) % Baso % (Auto) 0.7 (0.0-2.0) % Neut # (Auto) 5.1 (1.8-7.7) th/mm3 Lymph # (Auto) 1.3 (1.0-4.8) th/mm3 Castro # (Auto) 0.5 (0.0-0.9) th/mm3 Eos # (Auto) 0.0 (0.0-0.4) th/mm3 Baso # (Auto) 0.0 (0.0-0.2) th/mm3 WBC Differential . Differential Comment Auto diff final Imaging Data Radiologist's impression: Head CT 03/28/18 00:00 CONCLUSION: 1. Progressive moderate to severe hydrocephalus with stable left ANALYTICAL TECH shunt catheter in place. Findings are consistent with catheter malfunction. . Cervical Spine CT 03/28/18 06:11 CONCLUSION: 1. No acute fracture or subluxation. Chest X-Ray 03/28/18 06:14 CONCLUSION: 1. Negative portable chest. ECG Data Attestation: I personally reviewed and interpreted this ECG as follows: Interpretation: The patient had an EKG done on arrival. The patient's EKG reveals a sinus bradycardia heart rate of 48, QRS duration 101 ms, QTC [address] segment depression or elevation, T waves are inverted in lead III, V1. Discharge Plan Discharge Disposition Patient Disposition: ED Admit(ED Internal Use Only) Discharge Order Discharge Orders: ED Use Only Admit Order (Routine); Ordered 03/28/18 Ordered By: Dulce Maria Agarwal Discharge Details Diagnosis: Malfunction of ventriculo-peritoneal shunt, Altered mental status Physicians Team ED Provider: Dulce Maria Agarwal Primary Care Provider: UNKNOWN, Attending Provider: Ricki Rosales Discharge Interventions Interventions: Vital Signs Last Done: 03/28/18 07:00 Status ED Status: Admitted Patient
--- NOTE | 2018-03-28 06:47 | CT ---
EXAM DATE: 03/28/2018 6:29 AM EST AGE/SEX: 42 years / Male INDICATIONS: Weakness. Patient found unresponsive. CLINICAL DATA: This is the patient's initial encounter. Patient reports that signs and symptoms have been present for 1 day and indicates a pain score of 0/10. MEDICAL/SURGICAL HISTORY: . Hydrocephalus. . INTERVENTIONAL NURSE Shunt placed 03/24/18. RADIATION DOSE: 27.07 CTDI (mGy) COMPARISON: [facility] [place], CT HEAD W/O CONTRAST, 03/23/2018. . TECHNIQUE: CT of the head without contrast. Using automated exposure control and adjustment of the mA and/or kV according to patient size, radiation dose was kept as low as reasonably achievable to ob tain optimal diagnostic quality images. DICOM format image data is available electronically for revi ew and comparison. FINDINGS: Cerebrum: There is a left ventriculostomy catheter in place with tip extending just to the anterior margin of the left frontal horn. There is progressive diffuse ventriculomegaly. Interval resolution o f intraventricular air. Persistent focal encephalomalacia in the right frontal mid convexities. No gr oss mass or hemorrhage. Posterior Fossa: The cerebellum and brainstem are intact. The 4th ventricle is midline. The cerebe llopontine angle is unremarkable. Extracranial: The visualized portion of the orbits is intact. Skull: The calvaria is intact. No evidence of skull fracture. CONCLUSION: 1. Progressive moderate to severe hydrocephalus with stable left INTERVENTIONAL NURSE shunt catheter in place. Finding s are consistent with catheter malfunction. . Electronically signed by: Asaf Strickland MD Board Certified Radiologist 03/28/2018 6:46 AM EST
--- NOTE | 2018-03-28 06:49 | CT ---
EXAM DATE: 03/28/2018 6:30 AM EST AGE/SEX: 42 years / Male INDICATIONS: Trauma. Patient found unresponsive, possible fall. CLINICAL DATA: This is the patient's initial encounter. Patient reports that signs and symptoms have been present for 1 day and indicates a pain score of Nonresponsive. MEDICAL/SURGICAL HISTORY: . Hydrocephalus. . FISH FLIPPER Shunt. RADIATION DOSE: 42.99 CTDI (mGy) COMPARISON: No prior exams available for comparison. TECHNIQUE: Contiguous axial images were obtained using helical multirow detector technique. The vol umetric data was post-processed with multiplanar reconstruction in oblique axial, sagittal, and coron al planes. Using automated exposure control and adjustment of the mA and/or kV according to patient s ize, radiation dose was kept as low as reasonably achievable to obtain optimal diagnostic quality tana ges. DICOM format image data is available electronically for review and comparison. FINDINGS: OSSEOUS STRUCTURES: Vertebral body heights are maintained. Osseous structures are intact without evid ence for acute bony fracture. Dens is intact. ALIGNMENT: Sagittal alignment is maintained. There is a normal C1-2 relationship. Facets are normal ly aligned. SOFT TISSUES: There is no significant prevertebral soft tissue hematoma. No significant cervical marek nopathy or gross mass. The thyroid appears unremarkable. Visualized lung apices are clear without pn eumothorax. ADDITIONAL FINDINGS: Bony central canal is patent. Bony neural foramina are patent. CONCLUSION: 1. No acute fracture or subluxation. Electronically signed by: Asaf Strickland MD Board Certified Radiologist 03/28/2018 6:47 AM EST
--- NOTE | 2018-03-28 06:50 | XR ---
EXAM DATE: 03/28/2018 6:46 AM EST AGE/SEX: 42 years / Male INDICATIONS: Altered mental status. CLINICAL DATA: This is the patient's initial encounter. Patient reports that signs and symptoms have been present for 1 day and indicates a pain score of Nonresponsive. MEDICAL/SURGICAL HISTORY: . Hydrocephalus . . FUR PULLER shunt COMPARISON: No prior exams available for comparison. FINDINGS: A single AP view of the chest demonstrates the lungs to be symmetrically aerated without evidence of mass, infiltrate or effusion. FUR PULLER shunt tubing is noted in the left chest wall. The cardiomediastinal contours are unremarkable. Osseous structures are intact. CONCLUSION: 1. Negative portable chest. Electronically signed by: Asaf Strickland MD Board Certified Radiologist 03/28/2018 6:49 AM EST
[2018-03-28 07:03] LABS: Baso % (Auto) 0.7 % (0.0-2.0); Eos % (Auto) 0.6 % (0.0-4.0); Hematocrit 43.6 % (39.0-51.0); Hemoglobin 15.5 gm/dL (13.0-17.0); Lymph # (Auto) 1.3 th/mm3 (1.0-4.8); Lymph % (Auto) 18.1 % (9.0-44.0); Mean Corpuscular HGB Conc 35.5 % (32.0-36.0); Mean Corpuscular Hemoglobin 32.1 pg (27.0-34.0); Mean Corpuscular Volume 90.5 fL (80.0-100.0); Mean Platelet Volume 9.6 fL (7.0-11.0); Mono # (Auto) 0.5 th/mm3 (0.0-0.9); Mono % (Auto) 7.9 % (0.0-8.0); Neut # (Auto) 5.1 th/mm3 (1.8-7.7); Neut % (Auto) 72.7 % (16.0-70.0); Platelet Count 202 th/mm3 (150-450); Red Blood Count 4.81 mil/mm3 (4.50-5.90); Red Cell Distribution Width 12.9 % (11.6-17.2)
[2018-03-28 07:11] LABS: Activated Partial Thrombo Time 25.9 sec (23.4-31.7); INR 1.1 Ratio
[2018-03-28] MEDS ORDERED: Sugammadex Inj 200 MG/2 ML Vial IV.PUSH ONE (07:34)
--- NOTE | 2018-03-28 07:34 | P.HPNS ---
History of Present Illness Service: Neurosurgery Primary Care Physician: UNKNOWN Chief Complaint: altered mental status History of Present Illness: This is a 42 year old male who presents to the [facility] emergency department with a history of being found by his on the floor with altered mental status. Apperantly he fell down from a couch. When she attempted to sit him up he was out off balance. He had a a BUTTON AND BUCKLE MAKER shunt revision last week on , and he was discharged home without any complications. The patient was discharged from the hospital in stable condition last week. He was doing well. This morning he developed severe headaches, was drowsy. Hereports feeling dizzy, off balance. The patient denies having any extremity weakness, or numbness or tingling. Severe headaches. He is confused about the details of his recent medical history. The patient's mother drove him to the emergency department. She reports that he has had approximately 21 BUTTON AND BUCKLE MAKER shunt revisions since 2000 when he was diagnosed first with hydrocephalus. Otherwise on review of systems, the patient denies having any known recent fevers, cough, congestion, neck pain, chest pain, shortness of breath, abdominal pain, diarrhea , or urinary symptoms. Inpatient Certification: I certify that the inpatient services were ordered in accordance with Medicare regulations governing the order. This includes certification that hospital inpatient services are reasonable and necessary and in the case of services not specified as inpatient-only under 42 CFR 419.22(n), that they are appropriately provided as inpatient services in accordance to with the 2-midnight benchmark under 43 CFR 412.3(e) Estimated Total Length of Stay (Days): 3 Plans for Post Hospital Care: Not yet determined Review of Systems All other systems reviewed negative except as stated [facility] - History History Provided By: Patient - Medical History Medical History: Medical History (Last Reviewed 03/28/18 @ 14:31 by Ricki Rosales MD) Congenital hydrocephalus - Surgical History Surgical History: Surgical History (Last Reviewed 03/28/18 @ 14:31 by Ricki Rosales MD) H/O abdominal surgery Hx of appendectomy BUTTON AND BUCKLE MAKER (ventriculoperitoneal) shunt status - Tobacco History Second Hand Smoke Exposure: No Smoking Status: Never smoker Tobacco Type: Smokeless Tobacco - Alcohol History How Often Do You Have a Drink Containing Alcohol: Never - Substance Use History Substance History: No History of Abuse - Travel History Recent Travel in the [place] Within the Last 8 Weeks: No Recent Travel Out of the Country Within the Last 8 Weeks: No - Immunization History Tetanus Immunization: Unsure Medications and Allergies Active Medications: Active Medications Sodium Chloride (Ns Flush) 2 ml IV.FLUSH PRN PRN PRN Reason: FLUSH AFTER USING IV ACCESS Allergies Allergy/AdvReac Type Severity Reaction Status Date / Time hydromorphone AdvReac Intermediate Chest Pain Verified 03/28/18 05:53 adhesive AdvReac Mild RED WHELPS Verified 03/28/18 05:53 Home Medications Medication Instructions Recorded Confirmed Type No Known Home Medications 03/21/18 03/28/18 History Exam Vital signs: Vital Signs 03/28/18 05:49 03/28/18 06:03 03/28/18 06:32 Temperature 98 F Pulse Rate 50 L 46 L 40 L Respiratory Rate 16 18 Blood Pressure 124/70 145/73 H Pulse Oximetry 97 98 98 03/28/18 06:58 03/28/18 07:00 Temperature Pulse Rate 49 L 45 L Respiratory Rate 18 16 Blood Pressure 150/66 H 127/60 Pulse Oximetry 98 99 Intake & Output 03/27/18 03/28/18 03/28/18 18:59 06:59 18:59 Weight 81.647 kg Narrative: The patient is lethargic, stuporose, uncomfortable Cranial nerve examination: pupils to be equal, round and reactive to light. Extra-ocular movements are intact. Facial motor and sensory function are normal and symmetrical. Gross hearing appears intact. Sternocleidomastoid and trapezius muscles are symmetrical. Other cranial nerves are intact. Neck is soft and supple with a good range of motion without pain. Muscle strength is normal in all muscle groups of both upper and lower extremities. Sensory examination is intact to light touch and pin prick in both the upper and lower extremities. Deep tendon reflexes are symmetrical in both upper and lower extremities. There is a bilateral plantar flexion response. Cerebellar examination is unremarkable, without deficits. Lungs are clear Heart regular rhythm is regular rate Skin warm and dry Results - Laboratory Findings CBC and BMP: 03/28/18 06:26 03/28/18 06:26 Abnormal lab findings: Abnormal Labs 03/28/18 03/28/18 06:26 06:26 Neut % (Auto) 72.7 H Ammonia 38 H Caprini VTE Risk Assessment Caprini Risk Assessment Model: Point Value = 1 Point Value = 2 Point Value = 3 Point Value = 5 Age 41-60 Minor surgery BMI > 25 kg/m2 Swollen legs Varicose veins or History of unexplained or recurrent spontaneous Oral contraceptives or hormone replacement Sepsis (< 1 month) Serious lung disease, including pneumonia (< 1 month) Abnormal pulmonary function Acute myocardial infarction Congestive heart failure (< 1 month) History of inflammatory bowel disease Medical patient at bed rest Age 61-74 Arthroscopic surgery Major open surgery (> 45 min) Laparoscopic surgery (> 45 min) Malignancy Confined to bed (> 72 hours) Immobilizing plaster cast Central venous access Age >= 75 History of VTE Family history of VTE Factor V Leiden Prothrombin [id number] Lupus anticoagulant Anticardiolipin antibodies Elevated serum homocysteine Heparin-induced thrombocytopenia Other congenital or acquired thrombophilia Stroke (< 1 month) Elective arthroplasty Hip, pelvis, or leg fracture Acute spinal cord injury (< 1 month) Prophylaxis Regimen: Total Risk Factor Score Risk Level Prophylaxis Regimen 0-1 Low Early ambulation 2 Moderate Order ONE of the following: *Sequential Compression Device (SCD) *Heparin 5000 units SQ BID 3-4 Higher Order ONE of the following medications: *Heparin 5000 units SQ TID *Enoxaparin/Lovenox 40 mg SQ daily (WT < 150 kg, CrCl > 30 mL/min) *Enoxaparin/Lovenox 30 mg SQ daily (WT < 150 kg, CrCl > 10-29 mL/min) *Enoxaparin/Lovenox 30 mg SQ BID (WT < 150 kg, CrCl > 30 mL/min) AND/OR *Sequential Compression Device (SCD) 5 or more Highest Order ONE of the following medications: *Heparin 5000 units SQ TID (Preferred with Epidurals) *Enoxaparin/Lovenox 40 mg SQ daily (WT < 150 kg, CrCl > 30 mL/min) *Enoxaparin/Lovenox 30 mg SQ daily (WT < 150 kg, CrCl > 10-29 mL/min) *Enoxaparin/Lovenox 30 mg SQ BID (WT < 150 kg, CrCl > 30 mL/min) AND *Sequential Compression Device (SCD) Assessment and Plan - Plan I have reviewed the clinical and radiological findings Head CT 03/28/18 00:00 CONCLUSION: 1. Progressive moderate to severe hydrocephalus with stable left BUTTON AND BUCKLE MAKER shunt catheter in place. Findings are consistent with catheter malfunction. . Cervical Spine CT 03/28/18 06:11 CONCLUSION: 1. No acute fracture or subluxation. Chest X-Ray 03/28/18 06:14 CONCLUSION: 1. Negative portable chest. Neuro: neuro checks in a serial fashion. His shunt is clarly obstructed. Recommend a shunt reviion. Lis discussed with his and mother the step-by -step details of the surgical procedure, its indications, alternatives, risks, and potential complications. Risks and potential complications include, but are not limited to, infection, blood loss, CSF leak, partial or complete loss of sight in one or both eyes, paresis, paralysis, permanent pain or difficulty swallowing, loss of bowel or bladder function, complications from anesthesia, blood clot, stroke, myocardial infarction, or even . The possibility of nonoperative treatment has been offered. Pulmonary: aggressive pulmonary toilette, nasotracheal suction, and breathing treatments with nebulizers. Daily PT and OT Renal: Continue to monitor closely urine output, BUN and creatinine Endocrine: Continue to Monitor serial Acu checks and SSI as needed in detail ID continue to monitor for signs of infection Continue Protonix for stress ulcer prophylaxis Continue Tyler hose and SCD's for DVT prophylaxis Further recommendations will be provided depending on the patient's clinical evaluation and follow up studies.
[2018-03-28 07:40] LABS: Albumin 4.2 g/dL (3.4-5.0); Anion Gap 11 meq/L (5-15); Aspartate Aminotransferase 19 U/L (15-37); Blood Urea Nitrogen 21 mg/dL (7-18); Calcium 9.4 mg/dL (8.5-10.1); Carbon Dioxide 27.1 meq/L (21.0-32.0); Chloride 104 meq/L (98-107); Glomerular Filtration Rate 70 mL/min (>89); Glucose,Random 96 mg/dL (74-106); Lipase 112 U/L (73-393); Magnesium 2.5 mg/dL (1.5-2.5); Potassium 3.7 meq/L (3.5-5.1); Sodium 142 meq/L (136-145)
[2018-03-28 07:50] LABS: Alanine Aminotransferase 40 U/L (12-78); Alkaline Phosphatase 104 U/L (45-117); Total Protein 7.8 g/dL (6.4-8.2)
[2018-03-28 07:55] LABS: Creatine Kinase 36 U/L (39-308)
[2018-03-28] MEDS ORDERED: Thrombin Topical Soln 5,000 UNIT Vial TOPICAL ONE (07:57)
[2018-03-28] MEDS ORDERED: Sodium Chlor 0.9% Inj 250 ML ONE (07:57)
[2018-03-28] MEDS ORDERED: Gelatin Size 100 Topical Foam ONE (07:58)
[2018-03-28] MEDS ORDERED: ceFAZolin Inj 1 GM Vial (Addvantage) IV.SIG ONE (07:58)
[2018-03-28] MEDS ORDERED: Lidocaine 1%/Epinephrine 1:100,000 Inj 20 ML Vial ONE (08:12)
[2018-03-28] MEDS ORDERED: Aluminum/Magnesium/Simethacone Susp 30 ML UDC PO PRN (09:18)
[2018-03-28] MEDS ORDERED: Bisacodyl 10 MG Supp RECTAL PRN (09:18)
[2018-03-28] MEDS ORDERED: fentaNYL Citrate Inj 100 MCG/2 ML Ampul ONE (10:04)
[2018-03-28] MEDS: Sod Chloride 0.9% Inj 1,000 ML IV.CONT SCH (10:56)
[2018-03-28 11:49] LABS: Lymphocytes, CSF 27 %; Neutrophils,CSF 73 %
[2018-03-28 11:51] LABS: RBC on Tube 1 3135 /mm3
--- NOTE | 2018-03-28 14:34 | P.OP ---
Preoperative Diagnosis: Hydrocephalus. Ventriculoperitoneal shunt malfunction Postoperative Diagnosis: Hydrocephalus. Ventriculoperitoneal shunt malfunction Date of procedure: 03/28/18 Procedure: Revision of ventriculoperoitoneal shunt Anesthesia: IBIS Surgeon: Ricki Rosales MD Receiver Bulk System: Reginald Zamora Pathology: other (CSF) Operation and Findings: INTRAOPERATIVE FINDINGS. Clear cerebrospinal fluid with an opening pressure of 180 mm of water. 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 He was stuporose, with severe headaches and vomiting.CT f the brain suggested occlusion of the shunt with very severe hydrocephalus. A revision of the ventriculoperitoneal shunt was indicated The oxov-io-hafw details of the procedure, its indications, alternatives, risks , and potential complications of the surgery were fully discussed with the patient's family, including his and mother. They fully understood. All their questions were answered. No guarantees were given. He voiced requesting the surgery and signed informed consent.They were offered the alternative of continuing nonsurgical treatment. DETAILS OF THE SURGICAL PROCEDURE: After the induction of general anesthesia, endotracheal intubation was performed. A Singh catheter, bilateral GABRIELLA hose and sequential compression devices were placed and kept throughout the procedure. The patient was positioned supine on a 30-80 table with the head over a gel doughnut. All pressure points were carefully padded with eggcrate mattress. The left frontotemporal parietal area was shaved prepped and draped in the usual sterile fashion, as well as the neck, chest and abdomen. An incision was initially made along the valve with a #10 blade. Small bleeders were controlled with the bipolar and the valve was exposed. The valve was initially disconnected from the peritoneal catheter. No CSF dripping was visualized from the valve despite pumping it. Then, the patency of the peritoneal catheter was assessed with a manometer. The peritoneal catheter was found to be patent. The peritoneal catheter was flushed with saline solution. . The valve was filled with clot and tissue, and kept in a depressed position. A [employer] programmable valve has calibrated at a pressure of 110 mmHg and flushed according to the public transit specialist's instructions. The valve was secured to the proximal end of the peritoneal catheter using a 2-0 silk. There was no proper flow through the ventricular catheter. The ventricular catheter was exchanged and advanced into the ventricular system. An excellent good flow of cerebrospinal fluid was obtained with oppening pressure of 180 mm Hg. The catheter was connected to the valve and the connection secured with a 2-0 silk. The skin incision was closed using interrupted 3-0 Vicryl for the galea and nacho to the skin. At the end of the procedure, the sponge, needle and instrument counts were all correct. The estimated blood was less than 40 cc. No blood transfusion was given. No intraoperative complications occurred. The patient received preoperative prophylactic antibiotics. The patient was then extubated and transferred to the recovery room in stable condition.
[2018-03-28] MEDS: Senna/Docusate Sodium 8.6/50 MG Tablet PO SCH (19:36)
[2018-03-28] MEDS: ceFAZolin 2 GM Premix Inj 2 GM/50 ML PIGGYBACK IV.SIG SCH (19:37)
--- NOTE | 2018-03-29 00:51 | ECG ---
Date Performed: 03/28/2018 Time Performed: 06:24:53 PTAGE: 42 years EKG: SINUS BRADYCARDIA BORDERLINE ECG PREVIOUS TRACING : 11/05/2004 20.55 Compared to previous tracing, rate has decreased DOCTOR: Earnest Baires Interpretating Date/Time 03/29/2018 00:49:38
[2018-03-29] MEDS: ceFAZolin 2 GM Premix Inj 2 GM/50 ML PIGGYBACK IV.SIG SCH ×2 (00:54→08:10)
[2018-03-29] MEDS: Senna/Docusate Sodium 8.6/50 MG Tablet PO SCH ×3 (00:55→20:50)
[2018-03-29] MEDS: Morphine Inj 4 MG/ML Vial IV.PUSH PRN ×2 (04:39→21:09)
[2018-03-29] MEDS: Sod Chloride 0.9% Inj 1,000 ML IV.CONT SCH (06:46)
[2018-03-29 08:04] LABS: Hematocrit 41.9 % (39.0-51.0); Hemoglobin 14.9 gm/dL (13.0-17.0); Mean Corpuscular HGB Conc 35.6 % (32.0-36.0); Mean Corpuscular Hemoglobin 32.1 pg (27.0-34.0); Mean Corpuscular Volume 90.3 fL (80.0-100.0); Mean Platelet Volume 9.4 fL (7.0-11.0); Platelet Count 173 th/mm3 (150-450); Red Blood Count 4.64 mil/mm3 (4.50-5.90); Red Cell Distribution Width 13.3 % (11.6-17.2); White Blood Count 6.5 th/mm3 (4.0-11.0)
[2018-03-29 08:40] LABS: Atypical Lymphs 11 % (0-0); Lymphocytes 24 % (9-44); Monocytes 7 % (0-8)
[2018-03-29 08:42] LABS: Platelet Estimate Normal (Normal); Platelet Morphology Normal (Normal); RBC Morphology Normal (Normal)
[2018-03-29 09:07] LABS: Calcium 8.5 mg/dL (8.5-10.1); Carbon Dioxide 29.1 meq/L (21.0-32.0)
[2018-03-29 09:08] LABS: Potassium 3.3 meq/L (3.5-5.1)
--- NOTE | 2018-03-29 09:37 | CT ---
EXAM DATE: 03/29/2018 9:32 AM EST AGE/SEX: 42 years / Male INDICATIONS: Post op INSIDE SALES EXECUTIVE shunt revision. CLINICAL DATA: This is the patient's initial encounter. Patient reports that signs and symptoms have been present for 1 day and indicates a pain score of 0/10. MEDICAL/SURGICAL HISTORY: . hydrocephalus Appendectomy. INSIDE SALES EXECUTIVE shunt RADIATION DOSE: 43.0 CTDI (mGy) COMPAR[place]: [facility] [place]. . TECHNIQUE: CT of the head without contrast. Using automated exposure control and adjustment of the mA and/or kV according to patient size, radiation dose was kept as low as reasonably achievable to ob tain optimal diagnostic quality images. DICOM format image data is available electronically for revi ew and comparison. FINDINGS: Overall there is improvement in ventriculomegaly with conglomerate transverse diameter of both latera l ventricles in midportion measures 5 cm, it measured 5.8 cm previously. The ventricular tube is pres ent with tip in the region of the foramen of Hardy with encephalomalacia right frontal lobe and gas bubbles within the ventricles postprocedural. There is no hemorrhage. CONCLUSION: 1. Overall improvement in ventriculomegaly since the prior examination with moderate ventriculomegal y remaining. Electronically signed by: Sabrina Whalen MD Board Certified Radiologist 03/29/2018 9:35 AM EST
--- NOTE | 2018-03-29 12:31 | P.PNNS ---
Subjective Interval history: POD 1. he is doing very well. headaches resolved. Ambulating. No neurological deficits Tolerating diet Physical Exam Vital signs: Vital Signs 03/28/18 15:39 03/28/18 16:15 03/28/18 20:00 Temperature 99.8 F H 98.0 F Pulse Rate 64 64 Respiratory Rate 20 20 Blood Pressure 127/60 121/59 L Pulse Oximetry 97 96 94 L 03/28/18 20:31 03/29/18 00:00 03/29/18 00:55 Temperature 98.7 F Pulse Rate 67 Respiratory Rate 19 14 Blood Pressure 138/64 Pulse Oximetry 97 94 L 03/29/18 02:30 03/29/18 04:00 03/29/18 05:54 Temperature 98.2 F Pulse Rate 61 Respiratory Rate 16 18 16 Blood Pressure 138/60 Pulse Oximetry 94 L 03/29/18 07:55 03/29/18 08:04 03/29/18 09:00 Temperature 98.2 F Pulse Rate 69 Respiratory Rate 20 16 Blood Pressure 125/60 Pulse Oximetry 97 99 03/29/18 10:53 03/29/18 11:50 Temperature 98.1 F Pulse Rate 73 Respiratory Rate 20 Blood Pressure 130/65 Pulse Oximetry 97 96 Intake & Output 03/28/18 03/29/18 03/29/18 18:59 06:59 18:59 Intake Total 700 / 700 100 / 100 892 / 892 Balance 700 / 700 100 / 100 892 / 892 Weight 76.1 kg Intake: IV 100 / 100 772 / 772 NS Inj 1,000 ML @ 50 mls/hr IV. 722 / 722 CONT .Q20H DELISA Rx#:[id number] Ancef 2 GM Premix Inj 2 gm In 100 / 100 50 / 50 50 ml @ 100 mls/hr IV.SIG Q8H DELISA Rx#:[id number] Oral 120 / 120 Anesthesia Amount 700 / 700 Other: # Voids 1 Narrative: The patient is alert, awake. Comfortable, in no acute distress. Speech is fluent. Cranial nerve examination: pupils to be equal, round and reactive to light Incision dry, intact Muscle strength is normal in all muscle groups of both upper and lower extremities. Sensory examination is intact to light touch and pin prick in both the upper and lower extremities. Deep tendon reflexes are symmetrical in both upper and lower extremities. There is a bilateral plantar flexion response. Cerebellar examination is unremarkable, without deficits. 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 Daily PT and OT Renal: Continue to monitor closely urine output, BUN and creatinine Endocrine: Continue to Monitor serial Acu checks and SSI as needed in detail ID continue to monitor for signs of infection Continue Protonix for stress ulcer prophylaxis Continue Tyler potts and SCD's for DVT prophylaxis hold lovenox due to recent brain surgery
[2018-03-30 08:48] VITALS: PULSE 70; RESP 20; TEMP 98.6
[2018-03-30 10:06] VITALS: O2SAT 97
[2018-03-30] MEDS: Senna/Docusate Sodium 8.6/50 MG Tablet PO SCH (10:58)
[2018-03-30] MEDS: Sod Chloride 0.9% Inj 1,000 ML IV.CONT SCH (10:59)
[2018-03-30 12:58] VITALS: BP 112/58
--- NOTE | 2018-03-30 14:05 | P.PNNS ---
Subjective Interval history: POD #2 he is doing very well. No headaches. Ambulating. No emesis. no fever No neurological deficits Tolerating diet Physical Exam Vital signs: Vital Signs 03/29/18 16:15 03/29/18 20:00 03/30/18 00:00 Temperature 98.0 F 97.9 F 98.8 F Pulse Rate 61 77 88 Respiratory Rate 20 20 17 Blood Pressure 151/65 H 130/75 126/57 L Pulse Oximetry 96 98 97 03/30/ 04:00 03/30/18 08:00 03/30/18 12:00 Temperature 98.3 F 98.6 F 98.6 F Pulse Rate 71 70 70 Respiratory Rate 19 20 20 Blood Pressure 122/60 116/64 112/58 L Pulse Oximetry 96 97 97 Intake & Output 03/29/17/03/30/18 18:59 06:59 18:59 Intake Total 892 / 892 Output Total 400 / 400 Balance 892 / 892 -400 / -400 Weight 76.1 kg Intake: IV 772 / 772 NS Inj 1,000 ML @ 50 mls/hr IV. 722 / 722 CONT .Q20H DELISA Rx#:[id number] Ancef 2 GM Premix Inj 2 gm In 50 / 50 50 ml @ 100 mls/hr IV.SIG Q8H DELISA Rx#:[id number] Oral 120 / 120 Output: Urine 400 / 400 Other: # Voids 4 Date of Last Bowel Movement 03/28/18 Narrative: Incision healing well. Alert, awake. Comfortable, in no acute distress. Speech is fluent. Cranial nerve examination: pupils to be equal, round and reactive to light Incision dry, intact Muscle strength is normal in all muscle groups of both upper and lower extremities. Sensory examination is intact to light touch and pin prick in both the upper and lower extremities. Deep tendon reflexes are symmetrical in both upper and lower extremities. There is a bilateral plantar flexion response. Cerebellar examination is unremarkable, without deficits. Lungs are clear Heart regular rhythm is regular rate Skin warm and dry Assessment and Plan - Plan S/p UMBRELLA REPAIRER shunt POD #2 Neurologically stable Wants to go home Pulmonary: aggressive pulmonary toilette, nasotracheal suction, and breathing treatments with nebulizers. Daily PT and OT Renal: Continue to monitor closely urine output, BUN and creatinine Endocrine: Continue to Monitor serial Acu checks and SSI as needed in detail ID continue to monitor for signs of infection Continue Protonix for stress ulcer prophylaxis Discharge home
== END 2018-03-30 14:23 | disposition home or self-care (01) | DRG 32 ==
LOC: NEPC 05:48 → NEDA 06:44 → N05 12:03
PROVIDERS: ADMIT Neurological Surgery; ATTEND Neurological Surgery
CPT/HCPCS: 70450; 71010; 71045; 72125; 76000; 80048; 80053; 80307; 82140; 82550; 82945; 83690; 83735; 84155; 84157; 84443; 84484; 85025; 85610; 85730; 86850; 86900; 86901; 87070; 87205; 89051; 93005; 94150; 97116; 97162; 99291; J0690; J1580; J2270; J3010; J3370; J7030; J7050